=== PATIENT | female | born 1945 | race Caucasian/White ===

== ENCOUNTER → 2016-11-22 | Outpatient (CLI) | payer OTHER ==
[~2016-11-22] MED LIST: ACET-1138 PO; ACET-1256 PO; ASPEC325 PO; ASPI81TA28 PO; CALC-26 PO; CARV3.12 PO; CLOP1TAB15 PO; COEN1CAP7 PO; GLUCTAB7 PO; MULT-506 PO; NTRGSL/4 UT; OXYC-57 PO; PRED-301 PO; RXC5 PO; ZNTT/150 PO
--- NOTE | 2016-11-22 16:19 | MAMMOGRAPHY REPORT ---
BILATERAL DIGITAL SCREENING MAMMOGRAM WITH CAD: 11/22/2016 CLINICAL HISTORY: Routine screening. Patient has no complaints. TECHNIQUE: Bilateral CC and MLO views were obtained. Current study was also evaluated with a Comput er Aided Detection (CAD) system. COMPARISON: Comparison is made to exams dated: 10/07/2015 mammogram, 10/06/2014 mammogram, 09/20/2012 mammogram, 10/04/2013 mammogram, 09/12/2011 mammogram, and 09/29/2010 mammogram - [facility]. BREAST COMPOSITION: The tissue of both breasts is heterogeneously dense, which may obscure small ma sses. FINDINGS: There are scattered and grouped benign-appearing round and punctate microcalcifications i n the breasts. No new suspicious mass, architectural distortion or cluster of microcalcifications is seen. IMPRESSION: ACR BI-RADS CATEGORY 2: BENIGN There is no mammographic evidence of malignancy. A 1 year screening mammogram is recommended. The p atient will receive written notification of the results. Approximately 10% of breast cancers are not detected with mammography. A negative mammographic repor t should not delay biopsy if a clinically suggestive mass is present. Bea Ruiz M.D. ay/:11/22/2016 16:11:09 Recruitment Specialist: Renetta GALARZA(R)(M), [facility] letter sent: Normal 1/2 BI-RADS Code: ACR BI-RADS Category 2: Benign
== END | disposition home or self-care (01) ==
LOC: C.MAMM 09:27
PROVIDERS: ATTEND Family Medicine
DX: Z12.31 Encounter for screening mammogram for malignant neoplasm of breast (principal)

== ENCOUNTER → 2017-08-09 | Outpatient (CLI) | payer OTHER ==
[~2017-08-09] MED LIST changes: -ACET-1138 PO; -ACET-1256 PO; -ASPEC325 PO; -RXC5 PO
[2017-08-09 13:33] LABS: BLOOD UREA NITROGEN 21 mg/dl (7-18); CALCIUM 9.5 mg/dl (8.5-10.1); CARBON DIOXIDE 30 mmol/L (21-32); CREATININE 0.83 mg/dl (0.60-1.20); GLUCOSE 96 mg/dl (70-99); POTASSIUM 4.1 mmol/L (3.5-5.1); SODIUM 139 mmol/L (136-145)
[2017-08-09 13:36] LABS: CHOLESTEROL 178 mg/dl (0-200); LDL CHOLESTEROL CALCULATED 82 mg/dl
== END | disposition home or self-care (01) ==
LOC: C.LABPVFM 09:05
PROVIDERS: ATTEND Family Medicine
DX: E55.9 Vitamin D deficiency, unspecified (principal); E78.5 Hyperlipidemia, unspecified; I10 Essential (primary) hypertension

== ENCOUNTER → 2017-11-08 | Day surgery (SDC) | payer OTHER ==
[2017-11-03 09:36] VITALS: Ht 167.6 cm; Wt 75.0 kg
[~2017-11-08] VITALS: Ht 167.6 cm; Wt 75.0 kg
[~2017-11-08] MED LIST changes: +CHOL1000 PO; -CLOP1TAB15 PO; +COEN1CAP17 PO; -COEN1CAP7 PO; +EZET10TA63 PO; +HYDR2.5O TOP; +LIDOCAINE HCL 2% 2 ML VIAL (20MG/ML) ONE; +MIDAZOLAM HCL 1 MG/ML 2ML VIAL ONE; -NTRGSL/4 UT; +ONDANSETRON INJ 2 MG/ML 2 ML VIAL ONE; -OXYC-57 PO; +POLY335019 PO; +PROPOFOL IV EMULSION 10 MG/ML 20 ML VIAL ONE; +RANI150T85 PO; +SODIUM CHLORIDE 0.9% 500ML 500 ML IV ONE; -ZNTT/150 PO
--- NOTE | 2017-11-08 11:16 | Endo History and Physical ---
History & Physical Date of Service: November 08, 2017. Chief Complaint: GERD Referring Physician: Dr. Olson History of Present Illness 72 yo CF who presents for EGD secondary to GERD. Past Surgical History Hx Cardiac Surgery: Yes (CARDIAC CATH 1 STENT-, 07/2016 1 STENT) Hx Internal Defibrillator: No Hx Pacemaker: No Hx Abdominal Surgery: Yes (HYSTERECTOMY BSO) Hx of Implantable Prosthesis: No Hx Post-Op Nausea and Vomiting: Yes (PONV X 1) Hx Cancer Surgery: No Hx Thoracic Surgery: No Hx Orthopedic: Yes (R TKR, L K MENSICUS ARTHROSCOPY) Hx Urinary Tract Surgery: No Social History Smoking Status: Never Smoker Hx Substance Use: No Hx Alcohol Use: Yes (OCC SOCIAL) Allergies Coded Allergies: Ketorolac Tromethamine (Verified Allergy, Severe, itching from head to toe , nausea, throat tightening, 11/03/17) Patient uncertain of wheter Nucynta or Toradol could have caused this. Tapentadol (Verified Allergy, Severe, itching head to toe, dry mouth, tightening of throat, airway, 11/03/17) Cefaclor (Verified Allergy, Unknown, full body swelling-SOB, 11/03/17) Codeine (Verified Allergy, Unknown, OUT OF BODY,DIZZY COULDN'T FUNCTION, ) Ibuprofen (Verified Allergy, Unknown, FULL BODY SWELLING SOB, 11/03/17) pt states had reaction when taking ibuprofen and ceclor together. unsure which one caused reaction. pt avoids all NSAIDs Nitrofurantoin (Verified Allergy, Unknown, SOB,WELTS ON SKIN, 11/03/17) Oxycodone (Verified Allergy, Unknown, rash, 11/03/17) Ranolazine (Verified Allergy, Unknown, palpitations, anxiety, 11/03/17) Statins (Verified Allergy, Unknown, DOESN'T METABOLIZE-ACHES, 11/03/17) Amoxicillin (Unverified Adverse Reaction, Unknown, VIOLENT VOMITING, ) Clavulanic Acid (Unverified Adverse Reaction, Unknown, VIOLENT VOMITING, ) Current Medications Reported Home Medications Medications Dose Route/Sig Max Daily Dose Days Date Category Dose Instructions Zetia (Ezetimibe) 10 Mg Tab 10 Mg PO DAILY 11/03/17 Reported Vitamin D3 (Cholecalciferol) 1,000 Unit Tab 1 Tab PO TW 30 11/03/17 Reported Miralax (Polyethylene Glycol 3350) 1 Pow Pow 17 Gm PO DAILY 11/03/17 Reported Hydrocortisone (Hydrocortisone (Topical)) 2.5 % Oin 1 Appln TOP TID 5 11/03/17 Reported Co Q 10 (Coenzyme Q10 (Ubidecarenone)) 100 Mg Cap 1 Tab PO DAILY 11/03/17 Reported Aspirin Ec (Aspirin) 81 Mg Tab 81 Mg PO QAM 05/05/17 Reported Multivitamin (Multivitamins) Tab 1 Tab PO QAM 03/15/16 Reported Glucosamine Chondroitin (Wqrufhjdzyz-Enpeakqqyho-Sxf C-) 1 Tab Tab 1 Tab PO QAM 03/15/16 Reported Calcium Citrate +D (Calcium Citrate-Vitamin D) 1 Tab Tab 1 Tab PO QAM 03/15/16 Reported CALCIUM/D3/K Prednisone 5 Mg Tab 5 Mg PO Q2D 03/15/16 Reported Coreg (Carvedilol) 3.125 Mg Tab 3.125 Mg PO BID 03/15/16 Reported Zantac (Ranitidine HCl) 150 Mg Tab 150 Mg PO BID 03/15/16 Reported Vital Signs Weight (Kilograms): 75 Height (Feet): 5 Height (Inches): 6 Physical Exam General Appearance: WD/WN, no apparent distress Respiratory/Chest: Auscultation: breath sounds normal Cardiovascular: Heart Auscultation: RRR Abdomen: Bowel Sounds: normal Inspection & Palpation: soft, non-distended, no tenderness, guarding & rebound Assessment and Plan Assessment: 72 yo CF who presents for EGD secondary to GERD. Plan: Proceed with EGD.
--- NOTE | 2017-11-08 12:13 | GI REPORT ---
Patient Name: Noa Olivarez Procedure Date: 11/08/2017 11:54 AM Date of : 1945 Admit Type: Outpatient Age: 72 Gender: Female Attending MD: Imer Jett DO Procedure: Upper GI endoscopy Providers: Imer Jett DO Referring MD: Jasmine Olson Indications: Gastro-esophageal reflux disease Medicines: Monitored Anesthesia Care Complications: No immediate complications. Estimated Blood Loss: Estimated blood loss: none. Procedure: Pre-Anesthesia Assessment: - Prior to the procedure, a History and Physical was performed, and patient medications and allergies were reviewed. The patient's tolerance of previous anesthesia was also reviewed. The risks and benefits of the procedure and the sedation options and risks were discussed with the patient. All questions were answered, and informed consent was obtained. Prior Anticoagulants: The patient has taken aspirin, last dose was 1 day prior to procedure. ASA Grade Assessment: II - A patient with mild systemic disease. After reviewing the risks and benefits, the patient was deemed in satisfactory condition to undergo the procedure. After obtaining informed consent, the endoscope was passed under direct vision. Throughout the procedure, the patient's blood pressure, pulse, and oxygen saturations were monitored continuously. The scope was introduced through the mouth, and advanced to the second part of duodenum. The upper GI endoscopy was accomplished without difficulty. The patient tolerated the procedure well. Findings: A moderate Schatzki ring (acquired) was found at the gastroesophageal junction. A TTS dilator was passed through the scope. Dilation with an 18-19-20 mm balloon dilator was performed to 20 mm. The dilation site was examined and showed moderate improvement in luminal narrowing. A small hiatal hernia was present. Localized moderate inflammation characterized by erythema was found in the gastric antrum. Biopsies were taken with a cold forceps for histology. The examined duodenum was normal. Impression: - Moderate Schatzki ring. Dilated. - Small hiatal hernia. - Gastritis. Biopsied. - Normal examined duodenum. Recommendation: - Resume previous diet. - Continue present medications. - Await pathology results. - Use Protonix (pantoprazole) 40 mg PO daily. Imer Jett DO 11/08/2017 12:12:44 PM This report has been signed electronically. Note Initiated On: 11/08/2017 11:54 AM Number of Addenda: 0 I attest to the content of the Intraoperative Record and orders documented therein, exceptions below {[id number]}
--- NOTE | 2017-11-08 12:15 | Discharge Instructions ---
Endoscopy Patient Instructions Date / Procedure(s) Performed November 08, 2017. EGD Allergy Information Coded Allergies: Ketorolac Tromethamine (Verified Allergy, Severe, itching from head to toe , nausea, throat tightening, 11/03/17) Patient uncertain of wheter Nucynta or Toradol could have caused this. Tapentadol (Verified Allergy, Severe, itching head to toe, dry mouth, tightening of throat, airway, 11/03/17) Cefaclor (Verified Allergy, Unknown, full body swelling-SOB, 11/03/17) Codeine (Verified Allergy, Unknown, OUT OF BODY,DIZZY COULDN'T FUNCTION, ) Ibuprofen (Verified Allergy, Unknown, FULL BODY SWELLING SOB, 11/03/17) pt states had reaction when taking ibuprofen and ceclor together. unsure which one caused reaction. pt avoids all NSAIDs Nitrofurantoin (Verified Allergy, Unknown, SOB,WELTS ON SKIN, 11/03/17) Oxycodone (Verified Allergy, Unknown, rash, 11/03/17) Ranolazine (Verified Allergy, Unknown, palpitations, anxiety, 11/03/17) Statins (Verified Allergy, Unknown, DOESN'T METABOLIZE-ACHES, 11/03/17) Amoxicillin (Unverified Adverse Reaction, Unknown, VIOLENT VOMITING, ) Clavulanic Acid (Unverified Adverse Reaction, Unknown, VIOLENT VOMITING, ) Discharge Date / Findings November 08, 2017. Schatzki's Ring s/p dilation Hiatal hernia Gastritis s/p biopsies Medication Instructions OK to resume all medications today as prescribed Reported Home Medications Medications Dose Route/Sig Max Daily Dose Days Date Category Dose Instructions Zetia (Ezetimibe) 10 Mg Tab 10 Mg PO DAILY 11/03/17 Reported Vitamin D3 (Cholecalciferol) 1,000 Unit Tab 1 Tab PO TW 30 11/03/17 Reported Miralax (Polyethylene Glycol 3350) 1 Pow Pow 17 Gm PO DAILY 11/03/17 Reported Hydrocortisone (Hydrocortisone (Topical)) 2.5 % Oin 1 Appln TOP TID 5 11/03/17 Reported Co Q 10 (Coenzyme Q10 (Ubidecarenone)) 100 Mg Cap 1 Tab PO DAILY 11/03/17 Reported Aspirin Ec (Aspirin) 81 Mg Tab 81 Mg PO QAM 05/05/17 Reported Multivitamin (Multivitamins) Tab 1 Tab PO QAM 03/15/16 Reported Glucosamine Chondroitin (Rqdqusosvbh-Gybgsoriabr-Bqq C-) 1 Tab Tab 1 Tab PO QAM 03/15/16 Reported Calcium Citrate +D (Calcium Citrate-Vitamin D) 1 Tab Tab 1 Tab PO QAM 03/15/16 Reported CALCIUM/D3/K Prednisone 5 Mg Tab 5 Mg PO Q2D 03/15/16 Reported Coreg (Carvedilol) 3.125 Mg Tab 3.125 Mg PO BID 03/15/16 Reported Zantac (Ranitidine HCl) 150 Mg Tab 150 Mg PO BID 03/15/16 Reported Provider Instructions Activity Restrictions - No exercising or heavy lifting for 24 hours. - Do not drink alcohol the day of the procedure. - Do not drive a car or operate machinery until the day after the procedure. - Do not make any important decisions or sign important papers in 24 hours after the procedure. Following Day: - Return to full activity which may include returning to work/school. Diet Start your diet with liquids and light foods (jello, soup, juice, toast). Then eat your usual diet if not nauseated. Treatment For Common After Affects For mild abdominal pain, bloating, or excessive gas: - Rest - Eat lightly - Lie on right side Follow-Up Information Follow-up with Dr Olson as scheduled Anesthesia Information What You Should Know You have had a procedure that required some medicine to reduce anxiety and discomfort. This treatment is called moderate sedation. After receiving the treatment, you may be sleepy, but you will be able to breathe on your own. The effects of the treatment may last for several hours. Follow these instructions along with Activity/Diet recommendations noted above: * Do NOT do anything where dizziness or clumsiness would be dangerous. * Rest quietly at home today, then you can be up and about tomorrow. * Have a responsible person stay with you the rest of today. * You may have had an I.V. today. If so, you may take the dressing off later today. Recommendations Call your doctor if: * Trouble breathing * Continuous vomiting for more than 24 hours * Temperature above 101 degrees * Severe abdominal pain or bloating * Pain not relieved by pain medicine ordered * There is increased drainage or redness from any incision * A large amount of rectal bleeding greater than 2-3 tablespoons. (If you had a polyp/s removed or have hemorrhoids, a small amount of blood - from the rectum is to be expected.) * You have any unanswered questions or concerns. IN THE EVENT OF A SERIOUS EMERGENCY, GO TO THE NEAREST EMERGENCY ROOM Your discharge instructions were prepared by provider Imer Jett. Patient Instructions Signature Page Noa Olivarez Patient (or Guardian) Signature/Date: I have read and understand the instructions given to me by my caregivers. Caregiver/RN/Doctor Signature/Date: The above-named patient and/or guardian has received patient instructions on this date. + Original Patient Signature Page (only) stays with chart. Please make copy for patient.
--- NOTE | 2017-11-08 12:26 | Anesthesiology Progress Note ---
Anesthesia Post Op Note Date & Time November 08, 2017 at 12:26 Vital Signs Vital Signs Past 12 Hours Date Time Temp Pulse Resp B/P (MAP) Pulse Ox O2 Delivery O2 Flow Rate FiO2 11/08/17 12:12 68 16 133/58 (83) 98 Room Air 11/08/17 11:32 36.9 70 18 165/81 (109) 99 Room Air Notes Mental Status: alert / awake / arousable, participated in evaluation Pt Amnestic to Procedure: Yes Nausea / Vomiting: adequately controlled Pain: adequately controlled Airway Patency, RR, SpO2: stable & adequate BP & HR: stable & adequate Hydration State: stable & adequate Anesthetic Complications: no major complications apparent
[2017-11-08 12:42] VITALS: BP 160/75; PULSE 60; O2SAT 100
== END | disposition home or self-care (01) ==
LOC: C.GI 10:54
PROVIDERS: ATTEND Internal Medicine
DX: K21.9 Gastro-esophageal reflux disease without esophagitis (principal); K22.2 Esophageal obstruction; K44.9 Diaphragmatic hernia without obstruction or gangrene; K31.9 Disease of stomach and duodenum, unspecified; I25.10 Atherosclerotic heart disease of native coronary artery without angina pectoris; Z86.73 Personal history of transient ischemic attack (TIA), and cerebral infarction without residual deficits; M19.90 Unspecified osteoarthritis, unspecified site; Z90.710 Acquired absence of both cervix and uterus; Z90.89 Acquired absence of other organs; Z96.651 Presence of right artificial knee joint; Z88.1 Allergy status to other antibiotic agents; Z88.8 Allergy status to other drugs, medicaments and biological substances; Z88.5 Allergy status to narcotic agent; Z79.82 Long term (current) use of aspirin; Z79.899 Other long term (current) drug therapy

== ENCOUNTER → 2017-11-28 | Outpatient (CLI) | payer OTHER ==
[~2017-11-28] MED LIST changes: -LIDOCAINE HCL 2% 2 ML VIAL (20MG/ML) ONE; -MIDAZOLAM HCL 1 MG/ML 2ML VIAL ONE; -ONDANSETRON INJ 2 MG/ML 2 ML VIAL ONE; -PROPOFOL IV EMULSION 10 MG/ML 20 ML VIAL ONE; -SODIUM CHLORIDE 0.9% 500ML 500 ML IV ONE
--- NOTE | 2017-11-29 14:22 | MAMMOGRAPHY REPORT ---
BILATERAL DIGITAL SCREENING MAMMOGRAM TOMOSYNTHESIS WITH CAD: 11/28/2017 CLINICAL HISTORY: Routine screening examination. TECHNIQUE: Breast tomosynthesis in addition to standard 2D mammography was performed. Current study was also evaluated with a Computer Aided Detection (CAD) system. COMPARISON: Comparison is made to exams dated: 11/22/2016 mammogram, 10/07/2015 mammogram, 10/06/2014 m ammogram, 10/04/2013 mammogram, 09/20/2012 mammogram, and 09/12/2011 mammogram - [facility]. BREAST COMPOSITION: The tissue of both breasts is heterogeneously dense, which may obscure small mas ses. FINDINGS: There are diffusely scattered and grouped benign-appearing microcalcifications which are s table comparing to prior mammograms. No suspicious mass, architectural distortion or new cluster of m icrocalcifications is seen. IMPRESSION: ACR BI-RADS CATEGORY 2: BENIGN There is no mammographic evidence of malignancy. A 1 year screening mammogram is recommended. The pa tient will receive written notification of the results. Approximately 10% of breast cancers are not detected with mammography. A negative mammographic report should not delay biopsy if a clinically suggestive mass is present. Bea Ruiz M.D. ay/:11/28/2017 16:03:18 Net Solutions Architect: Peggy GALARZA(Sonia)(Eugenie), [facility] letter sent: Normal 1/2 BI-RADS Code: ACR BI-RADS Category 2: Benign
== END | disposition home or self-care (01) ==
LOC: C.MAMM 09:19
PROVIDERS: ATTEND Family Medicine
DX: Z12.31 Encounter for screening mammogram for malignant neoplasm of breast (principal)

== ENCOUNTER 2019-04-04 09:33 | Inpatient (IN) ==
--- NOTE | 2019-03-07 13:34 | PAT Medication Instructions ---
Medication Instructions Date of Service March 07, 2019 Home Medications acetaminophen 500 mg tablet 500 mg PO PRN aspirin 81 mg tablet,delayed release 81 mg PO QAM calcium carbonate 600 mg calcium (1,500 mg) tablet 600 mg PO QAM carvedilol 3.125 mg tablet 3.125 mg PO BID coenzyme Q10 100 mg capsule 100 mg PO QAM ezetimibe 10 mg tablet 10 mg PO QAM hydrocortisone 2.5 % topical ointment 1 appln TOPICAL DAILY PRN pantoprazole 40 mg tablet,delayed release 40 mg PO QAM polyethylene glycol 3350 17 gram/dose oral powder 17 gm PO PRN triamcinolone acetonide 0.5 % topical cream 1 appln TOPICAL BID PRN clobetasol 1 appln TOP BID PRN STOP taking 2 weeks before surgery (or as soon as possible if surgery is within 2 weeks) coenzyme Q10 100 mg capsule 100 mg PO QAM STOP taking 24 hours before surgery hydrocortisone 2.5 % topical ointment 1 appln TOPICAL DAILY PRN triamcinolone acetonide 0.5 % topical cream 1 appln TOPICAL BID PRN clobetasol 1 appln TOP BID PRN DO NOT take the morning of surgery calcium carbonate 600 mg calcium (1,500 mg) tablet 600 mg PO QAM polyethylene glycol 3350 17 gram/dose oral powder 17 gm PO PRN Take morning of surgery With a small sip of water, OTHERWISE NOTHING TO EAT OR DRINK AFTER MIDNIGHT: acetaminophen 500 mg tablet 500 mg PO PRN (okay to take up to 4 hours prior to surgery if needed) aspirin 81 mg tablet,delayed release 81 mg PO QAM carvedilol 3.125 mg tablet 3.125 mg PO BID ezetimibe 10 mg tablet 10 mg PO QAM pantoprazole 40 mg tablet,delayed release 40 mg PO QAM Take evening before surgery acetaminophen 500 mg tablet 500 mg PO PRN (if needed) carvedilol 3.125 mg tablet 3.125 mg PO BID polyethylene glycol 3350 17 gram/dose oral powder 17 gm PO PRN (if needed) Other Notes If you have any questions please call us at [phone] or [phone] or [phone] or [phone]
--- NOTE | 2019-03-08 09:56 | Anesthesiology Consultation ---
Date of Service March 08, 2019 Assessment & Plan (1) Encounter for pre-operative examination: Cardio: 01/11/19: chronic, unchanged DUBOSE. F/U 1 year. Chart Review Chart Review: Acceptable Risk for Surgery (pending preop testing (labs, CXR)) and Patient seen in Pre Admission Testing Teaching & Discussion Pre-Anesthesia Teaching/Discussion Notes: Instructed NPO after midnight before surgery,except medications with 15 cc of water. Medication instructions provided according to the PAT guidelines. History Surgery Operation Date: 04/04/19 11:10 Proposed Procedures p Left Total Knee Replacement - Bijan Lamar MD Height/Weight Height: 5 ft 6 in Weight: 73.5 kg Allergies Allergy/AdvReac Type Severity Reaction Status Date / Time ketorolac Allergy Severe itching Verified 03/08/19 10:19 from head to toe, nausea, throat tightening tapentadol Allergy Severe itching Verified 03/01/19 12:00 head to toe, dry mouth, tightening of throat, airway tramadol Allergy Severe itching Verified 03/08/19 10:19 from head to toe, nausea, throat tightening cefaclor Allergy Unknown full body Verified 03/01/19 12:00 swelling-SOB codeine Allergy Unknown OUT OF Verified 03/01/19 12:00 BODY,DIZZY COULDN'T FUNCTION ibuprofen Allergy Unknown FULL BODY Verified 03/01/19 12:00 SWELLING SOB nitrofurantoin Allergy Unknown SOB,WELTS Verified 03/01/19 12:00 ON SKIN oxycodone Allergy Unknown rash Verified 03/01/19 12:00 ranolazine Allergy Unknown palpitations, Verified 03/01/19 12:00 anxiety Bguftfd-Uhm-Pnp Reductase Allergy Unknown DOESN'T Verified 03/01/19 12:00 Inhibitor METABOLIZE-ACHES amoxicillin AdvReac Unknown VIOLENT Verified 03/01/19 12:00 VOMITING clavulanic acid AdvReac Unknown VIOLENT Verified 03/01/19 12:00 VOMITING Medications Home Medications Medication Instructions Recorded Confirmed Last Taken acetaminophen 500 mg tablet 500 mg PO PRN tab 01/27/19 03/01/19 Unknown aspirin 81 mg tablet,delayed 81 mg PO QAM tab 01/27/19 03/01/19 Unknown release calcium carbonate 600 mg calcium 600 mg PO QAM tab 01/27/19 03/01/19 Unknown (1,500 mg) tablet carvedilol 3.125 mg tablet 3.125 mg PO BID tab 01/27/19 03/01/19 Unknown coenzyme Q10 100 mg capsule 100 mg PO QAM cap 01/27/19 03/01/19 Unknown ezetimibe 10 mg tablet 10 mg PO QAM #90 tab 01/27/19 03/01/19 Unknown hydrocortisone 2.5 % topical 1 appln TOPICAL DAILY PRN gm 01/27/19 03/01/19 Unknown ointment pantoprazole 40 mg tablet,delayed 40 mg PO QAM #90 tab 01/27/19 03/01/19 Unknown release polyethylene glycol 3350 17 17 gm PO PRN PRN gm 01/27/19 03/01/19 Unknown gram/dose oral powder triamcinolone acetonide 0.5 % 1 appln TOPICAL BID PRN #1 gm 01/27/19 03/01/19 Unknown topical cream clobetasol 1 appln TOP BID PRN 03/01/19 03/01/19 Unknown prednisone 5 mg PO Q OTHER DAY 03/08/19 03/08/19 Unknown Past Medical History Medical History CAD (coronary artery disease) 2009 (stent x 1), 2016 (stent x1) Chronic back pain Degenerative disc disease GERD (gastroesophageal reflux disease) controlled Hiatal hernia History of benign breast biopsy left History of mitral valve prolapse Osteoarthritis PMR (polymyalgia rheumatica) on chronic prednisone* Schatzki's ring Exercise / Class Metabolic Activity III < 4 Walking/Shop/Light housework Past Family History Family History Father Family history of diabetes mellitus Uncle Family history of diabetes mellitus Past Surgical History Surgical History History of D&C History of arthroscopy of left knee History of cardiac cath 2009 (stent x 1), 2017 (stent x1) History of cataract surgery B/L History of colonoscopy History of esophagogastroduodenoscopy (EGD) History of right knee joint replacement History of tonsillectomy and adenoidectomy History of total abdominal hysterectomy and bilateral salpingo-oophorectomy Past Anesthesia History No Family Hx of Anesthesia Complications and Other *"Slow to wake"; no known hx reintubation* History of PONV No Hx of PONV and No Hx of Motion Sickness Social History Smoking Status: Never smoker Do You Dip or Chew Tobacco: No Hx Alcohol Use: Yes Alcohol type: wine alcohol intake frequency: holidays/special occasions only Hx Substance Use: No substance use type: does not use Review of Systems Reflux controlled. Patient denies chest pain, shortness of breath, cough, wheezing, palpitations. Physical Exam Vital Signs VITALS BP 132*79 P 63 TEMP 98.0 SP02 97%RA RESP 20 PHYSICAL Full neck and c-spine range of motion. Full TMJ range of motion. TMD 2 finger breaths (small chin) Mallampati Score 3 Dentition: partial dentures on lower, several crowns including upper left side Lungs: clear throughout to auscultation Cardiac: regular rate and rhythm, I/ systolic murmur Spine: normal Carotid arteries: negative bruit Extremities: no edema Testing Electrocardiogram Date: 04/27/18 Findings: + NSR @ (71) Echocardiogram Date: 12/17/15 EF 55-60%. Mild to moderate MR. Stress Test Date: 08/21/14 Type: nuclear (Lexiscan) Minimal motion artifact noted. Some breast attenuation present on the study. Stress EKG with no significant ST changes. Occasional PVC's. Myocardial perfusion scan is "normal" with no area of ischemia or infarction. EF 73%. Cardiac Catheterization Date: 07/14/16 Successful FFR, PTCA and POPEYE of the diagonal branch with PTCA of the LAD. LVEF 60%.
[2019-03-08 10:33] LABS: Basophils # (auto) 0.03 K/uL (0-0.2); Basophils % (auto) 0.6 %; Eosinophils # (auto) 0.21 K/uL (0-0.5); Eosinophils % (auto) 4.1 %; Hematocrit (blood only) 40.9 % (37-47); Hemoglobin 13.5 g/dL (12.0-16.0); Immature Granulocytes # (auto) 0.01 K/uL (0.00-0.02); Immature Granulocytes % (auto) 0.2 %; Lymphocytes # (auto) 1.93 K/uL (1.2-3.4); Lymphocytes % (auto) 37.4 %; Mean Corpuscular Hemoglobin 29.6 pg (25-34); Mean Corpuscular Volume 89.7 fL (80-100); Mean Platelet Volume 9.7 fL (7.4-10.4); Monocytes # (auto) 0.33 K/uL (0.11-0.59); Monocytes % (auto) 6.4 %; Neutrophils # (auto) 2.65 K/uL (1.4-6.5); Neutrophils % (auto) 51.3 %; Platelet Count 195 K/uL (130-400); RDW Coefficient of Variation 14.9 % (11.5-14.5); RDW Standard Deviation 48.6 fL (36.4-46.3); Red Blood Count 4.56 M/uL (4.2-5.4); White Blood Count 5.16 K/uL (4.8-10.8)
[2019-03-08 10:40] LABS: INR 1.1 (0.9-1.1); Partial Thromboplastin Ratio 1.1; Partial Thromboplastin Time 28.9 Seconds (21.0-31.0); Prothrombin Time 10.9 Seconds (9.0-12.0)
--- NOTE | 2019-03-08 10:49 | XRay Report ---
XR chest Pre-admission PA/Lat CLINICAL HISTORY: pat preoperative COMPARISON STUDY: No previous studies for comparison. FINDINGS: The bones soft tissues and hemidiaphragms are normal. The cardiomediastinal silhouette is n ormal. The lungs are clear. The pulmonary vasculature is normal. IMPRESSION: Negative chest. The above report was generated using voice recognition software. It may contain grammatical, syntax or spelling errors. Electronically signed by: Ad Hawley M.D. 03/08/2019 10:48 AM
[2019-03-08 12:00] LABS: BUN Creatinine Ratio 32.9 (10-20); Blood Urea Nitrogen 26 mg/dl (7-18); C Reactive Protein < 0.29 mg/dl (0-0.29); Calcium 9.2 mg/dl (8.5-10.1); Carbon Dioxide 30 mmol/L (21-32); Chloride 109 mmol/L (98-107); Creatinine Clr Calc Pharmacy 66.9 ml/min; Glucose 95 mg/dl (70-99); Potassium 4.4 mmol/L (3.5-5.1); Sodium 141 mmol/L (136-145)
--- NOTE | 2019-03-30 18:44 | History and Physical Report ---
DATE OF ADMISSION: 04/04/2019 CHIEF COMPLAINT: Persistent left knee pain and discomfort. HISTORY OF PRESENT ILLNESS: A 73-year-old female who is well known to me from multiple previous orthopedic problems in the past. She underwent a right knee replacement about 5 years ago and has done well from this. Over the past several years, she has developed increased pain and discomfort in her left knee. She had fairly minor degenerative changes and we scoped her knee about 2 years ago. It helped her for couple months and that is it. Things have progressed since then. She has got global pain. It has gotten gradually worse, particularly with weightbearing. The more she walks, the more it hurts. She has had multiple injections which provided some temporary relief only. X-ray show progressive left medial knee arthritis and she would like to proceed with left knee replacement. PAST MEDICAL HISTORY: Significant for: 1. Coronary artery disease status post cardiac stent placement x2, one in 2009 and one in 2016, followed in [place]. 2. Hiatal hernia. 3. Gastroesophageal reflux disease. 4. Mild obesity. 5. Hypertension. 6. Elevated cholesterol. 7. History of TIA without sequelae. 8. PMR. PAST SURGICAL HISTORY: Previous surgeries include: 1. Breast biopsy x2. 2. Cardiac stent placement, one in 2009 and one in 2017. 3. Hysterectomy. 4. Right knee replacement done in 10/30/2013. 5. Left knee arthroscopy on 05/10/2017. ALLERGIES: CECLOR, IBUPROFEN, MACROBID, AUGMENTIN, CODEINE AND TRAMADOL/TORADOL. MEDICATIONS: 1. Coenzyme Q. 2. Calcium. 3. Prednisone 3.5 mg every other day for PMR. 4. Pantoprazole 40 mg. 5. Carvedilol. 6. Ezetimibe. 7. Aspirin 81 mg a day. SOCIAL HISTORY: Significant for a 73-year-old female patient who is , lives in [place]. Does not smoke. FAMILY HISTORY: Noncontributory. REVIEW OF SYSTEMS: Significant for this TIA without sequelae. She has had 2 cardiac stents placed. She denies any current chest pain or shortness of breath. No history of DVT or PE. PHYSICAL EXAMINATION: GENERAL: Reveals a healthy, pleasant middle-aged female. Looks to be in pretty good health. HEENT: Benign. NECK: Supple, no lymphadenopathy. LUNGS: Clear to auscultation. HEART: Has a regular rate and rhythm. ABDOMEN: Soft, nontender, nondistended. EXTREMITIES: Grossly neurovascularly intact except as follows. Examination of the left knee reveals the patient ambulates with a limp. She has got varus alignment to her knee. Small knee effusion. She is tender over the medial joint line. Range of motion is 10 degrees short of full extension and 20 degrees of flexion. There is no instability. Examination of the left hip reveals some slight pain and stiffness with hip motion. Leg lengths are equal. Negative straight leg raise. X-RAYS: X-rays of the left knee reveal advanced medial compartment DJD. She has got complete loss of medial joint space. 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 She has subchondral sclerosis. X-rays of the left hip reveals some mild hip arthritis. There are osteophytes around the acetabulum and femoral head, but it is preserved hip joint space. ASSESSMENT: A 73-year-old female with a history of right knee replacement in the past with left knee degenerative joint disease. She has got some hip arthritis. The left knee seems to be more of the limiting factor. She has failed conservative treatment and would like to proceed with left knee replacement. PLAN: We will take her to the Operating Room and do the left knee replacement. The risks and benefits of this procedure were explained to the patient including but not limited to DVT, PE, , infection, neurological injury, vascular injury, bleeding problem, pain, limited range of motion, stiffness, failure to relieve symptoms, incomplete relief of symptoms, need for further surgery in future, fracture, leg length inequality, nerve palsy, etc. The patient understands and desires to proceed. Informed consent was obtained. I did talk to her about this not helping her hip pain, may need to be addressed in the future. As far as pain control, she has apparently had reactions to both tramadol and Toradol in the past. We will have to check her chart and be careful with postoperative pain control. We will likely use oxycodone as she has had done okay with that in the past. We will use Tylenol as well. As far as discharge plans, she is planning to be discharged to home using [facility]. JOHN
[~2019-04-04 09:33] MED LIST changes: +ACETAMINOPHEN 500 MG TAB PO SCH; -ASPI81TA28 PO; +BUPIVACAINE 0.5 % 5 MG/1 ML PF 10ML VIAL ONE; +BUPIVACAINE LIPOSOME/PF 266 MG, BUPIVACAINE/EPINEPHRINE 50 ML, SODIUM CHLORIDE 0.9% 30 ... INFIL SCH; -CALC-26 PO; -CARV3.12 PO; -CHOL1000 PO; -COEN1CAP17 PO; -EZET10TA63 PO; +FAMOTIDINE 20 MG TAB PO SCH; +GABAPENTIN 300 MG CAP PO SCH; -GLUCTAB7 PO; -HYDR2.5O TOP; +LR 500ML BOLUS, THEN 15ML/HR IV SCH; +LR 60ML/HR IV SCH; +METOCLOPRAMIDE HCL 10 MG TABLET PO SCH; -MULT-506 PO; -POLY335019 PO; -PRED-301 PO; -RANI150T85 PO; +ROPIVACAINE 0.5% 5 MG/ML 30 ML VIAL ONE; +TRANEXAMIC ACID 1,000 MG **IV Pre-op IV SCH; +VANCOMYCIN HCL 1,250 MG in SODIUM CHLORIDE 0.9% 250 ML IV SCH
[2019-04-04] MEDS ORDERED: PROPOFOL IV EMULSION 10 MG/ML 20 ML VIAL IV ONE (10:49)
[2019-04-04] MEDS ORDERED: LIDOCAINE HCL 2% 2 ML VIAL/AMP(20MG/ML) INFIL ONE (10:49)
[2019-04-04] MEDS ORDERED: MIDAZOLAM HCL 1 MG/ML 2ML VIAL ONE (10:50)
[2019-04-04] MEDS ORDERED: fentaNYL citrate 100 MCG/2 ML VIAL ONE (10:50)
--- NOTE | 2019-04-04 11:07 | History & Physical Bridge Note ---
Date of Service April 04, 2019 History & Physical Bridge Note I have examined the patient, reviewed the History & Physical and in the interval since the performance of the History & Physical I have noted the following changes of clinical significance: no changes noted
[2019-04-04] MEDS ORDERED: BUPIVACAINE/EPINEPHRINE 0.25% 1:200,000 30 ML VIAL ONE (12:15)
[2019-04-04] MEDS ORDERED: BUPIVACAINE LIPOSOME 1.3% 266 MG/20 ML VIAL ONE (12:15)
[2019-04-04] MEDS ORDERED: SODIUM CHLORIDE 0.9% PF 50 ML VIAL ONE (12:15)
[2019-04-04] MEDS ORDERED: BACITRACIN INJ 50,000 UNIT VIAL ONE (12:15)
--- NOTE | 2019-04-04 14:53 | Post Operative Brief Note ---
PG Immediate Post Op with CF Date of Surgery April 04, 2019 Pre & Post Diagnosis Operation Date: 04/04/19 12:45 Pre-Op Diagnosis: Left Knee Degenerative Joint Disease Post-Op Diagnosis: Left Knee Degenerative Joint Disease Procedure Operation Date: 04/04/19 12:45 Actual Procedures p Left Total Knee Replacement(Left) - Bijan Lamar MD Surgeon Bijan Lamar MD Insurance Processor Rosana, PAC Estimated Blood Loss 50 Findings Consistent with Post-Op Diagnosis Fluids 1400 cc Specimens Specimen Description: Permanent specimen A: left knee bone and tissue Drains Leos Catheter (16fr leos catheter placed by Bob Morgan RN, without difficulty; leos demonstrates clear yellow urine.) Anesthesia Type Spinal MAC Complications none Disposition Accompanied Patient To Recovery: No Disposition: Recovery Room
--- NOTE | 2019-04-04 15:34 | XRay Report ---
XR knee LT 2V routine CLINICAL HISTORY: 73 years-old Female presenting with Surgical Post Op. TECHNIQUE: Frontal and lateral views of the left knee were obtained. COMPARISON: 01/25/2019. FINDINGS: There has been interval total left knee arthroplasty with patellar resurfacing. Expected intra-articu lar and soft tissue emphysema. No malalignment or periprosthetic fracture. No periprosthetic lucency. Overlying skin monique. Mild surrounding soft tissue swelling. IMPRESSION: Expected postsurgical appearance status post total left knee arthroplasty with patellar resurfacing. Electronically signed by: Heber Blandon M.D. 04/04/2019 3:33 PM
--- NOTE | 2019-04-04 16:17 | Anesthesiology Progress Note ---
Date of Service April 04, 2019 Anesthesia Post Procedure Vital Signs Vital Signs: Temp Pulse Pulse Resp BP BP Pulse Ox 04/04/19 16:15 74 12 140/62 96 04/04/19 16:05 36.3 C L 81 20 132/67 98 04/04/19 15:55 61 17 151/69 H 99 04/04/19 15:45 57 L 13 134/69 99 04/04/19 15:35 69 18 142/76 H 98 04/04/19 15:25 65 17 168/66 H 95 04/04/19 15:15 58 L 13 140/67 99 04/04/19 15:05 68 20 152/70 H 97 04/04/19 14:57 36.5 C 69 16 147/74 H 99 04/04/19 10:04 37 C 67 18 174/85 H 98 Transfer of Care Handoff Completed per policy Notes Mental Status: alert / awake / arousable Patient Amnestic to Procedure: Yes Nausea / Vomiting: adequately controlled Pain: adequately controlled Airway Patency, RR, SpO2: stable & adequate BP & HR: stable & adequate Hydration State: stable & adequate Neuraxial Anesthesia: was administered and sensory block is resolving Anesthetic Complications: no major complications apparent
[2019-04-04] MEDS ORDERED: POLYETHYLENE (MIRALAX) 17 GM PACK PO PRN (16:26)
[2019-04-04] MEDS ORDERED: ONDANSETRON INJ 2 MG/ML 2 ML VIAL IV PRN (16:26)
[2019-04-04] MEDS ORDERED: METOCLOPRAMIDE HCL INJ 5 MG/ML 2 ML VIAL IV PRN (16:26)
[2019-04-04] MEDS ORDERED: MAGNESIUM HYDROXIDE SUSP 30 ML UDC PO PRN (16:26)
[2019-04-04] MEDS ORDERED: ALUMINUM/MAGNESIUM SUSP 30 ML UDC PO PRN (16:26)
[2019-04-04] MEDS ORDERED: TRIAMCINOLONE ACET 0.5% CR 15 GM TUBE TOP PRN (16:26)
[2019-04-04] MEDS ORDERED: bisacodyL 10 MG SUPP PR PRN (16:26)
[2019-04-04] MEDS ORDERED: VANCOMYCIN CONSULT ACTIVE PRN (16:26)
[2019-04-04] MEDS ORDERED: HYDROCORTISONE 2.5% CR 30 GM TUBE EXT PRN (16:26)
[2019-04-04] MEDS ORDERED: NALOXONE HCL 0.4 MG/1 ML VIAL/CARP IV PRN (16:26)
[2019-04-04] MEDS ORDERED: HYDROmorphone INJ 0.5 MG/0.5 ML SYR IV PRN (16:26)
[2019-04-04] MEDS ORDERED: CLOBETASOL PROPIONATE 0.05% OINT 15 GM TUBE EXT PRN (16:26)
[2019-04-04] MEDS: FERROUS GLUCONATE 324 MG TAB PO SCH (17:35)
[2019-04-04] MEDS: ASCORBIC ACID 500 MG TAB PO SCH (17:35)
--- NOTE | 2019-04-04 18:01 | Operative Report ---
DATE OF OPERATION: 04/04/2019 SURGEON: Bijan Lamar MD FIBREGLASS LAMINATOR: LATIA Parker PREOPERATIVE DIAGNOSIS: Left knee degenerative joint disease. POSTOPERATIVE DIAGNOSIS: Left knee degenerative joint disease. PROCEDURE PERFORMED: Left cemented posterior stabilized total knee arthroplasty. COMPLICATIONS: None. ESTIMATED BLOOD LOSS: 50 mL. FLUID REPLACEMENT: 1400 mL crystalloid fluid replacement. TOURNIQUET TIME: 50 minutes at 300 mmHg. ANESTHESIA: Spinal with adductor canal block. DRAINS: None. SPECIMENS: Left knee sent for pathology. OPERATIVE INDICATIONS: The patient is a 73-year-old female who has had a long history of intermittent on and off bilateral knee pain and discomfort. She had undergone a right knee replacement in the past. She underwent a left knee arthroscopy 2 years ago which provided minimal relief. 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 She failed all conservative care and elected to proceed with total knee arthroplasty. OPERATIVE FINDINGS: Operative findings revealed fairly extensive grade 4 [id number] disease in the medial and patellofemoral compartments. Not much eburnation, but full thickness cartilage loss. 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 Large knee joint effusion. OPERATIVE IMPLANTS: Operative implants consisted of: 1. Biomet Vanguard size 60 left posterior stabilized femoral component. 2. A Biomet size 63 tibial tray. 3. A 10 mm posterior stabilized polyethylene insert. 4. A 25 x 8 all poly patella. OPERATIVE PROCEDURE: The patient was taken to the operating room, identified and placed on the operating table in supine position. All contact areas were appropriately padded. IV antibiotics provided by anesthesia team. A spinal anesthetic and adductor canal block had been provided in the holding area. Lee catheter was placed in sterile fashion. Left thigh tourniquet was then placed and left lower extremity was then prepped and draped in usual sterile fashion. Left leg was elevated and exsanguinated with an Esmarch and tourniquet was placed at 300 mmHg. An anterior approach of the left knee was then performed through a longitudinal incision centered over the patella. Sharp dissection was carried through subcutaneous tissue down to the level of the extensor mechanism. A medial parapatellar arthrotomy incision was made. Some subperiosteal dissection was carried out medially. The fat pad was resected from beneath the patellar tendon. The lateral patellofemoral ligament was released. The patella was subluxated laterally and the knee was flexed. The osteophytes were taken off the distal femur. The ACL and PCL were then released from the distal femur and the tibia subluxated anteriorly. The external tibial alignment jig was then placed in the anterior face of the tibia and adjusted 14 mm medially. Proximal tibial cut was made to remove about 2-3 mm of bone from the medial side. Tibia sized to a size 63. Attention was then drawn to the femur. The distal femur was entered with a sharp drill bit. Intramedullary canal was suctioned. A left 5-degree valgus cutting guide was placed. Distal femoral cutting block was pinned in place. Distal femoral cut was made to take an additional 3 mm of bone off the distal femur. Femur was then sized to small medial and lateral dimensions. The AP cutting block was pinned parallel to the epicondylar axis, which was 5 degrees of external rotation. The anterior cut, anterior chamfer cut, posterior cut, posterior chamfer cuts were made. Box cutting guide was placed and adjusted slightly lateral and the box cut was made. The knee was flexed. The remnants of the medial and lateral menisci were excised. The osteophytes were taken off the posterior aspect of the femur. Trial femoral component was placed. Tibial tray was pinned in maximum external rotation and the drill and stem punch were used to create defect in proximal tibia for the tibial tray. The knee was then trialed with 10 mm insert fit most appropriately. Attention was then drawn to patella. The patella was cleaned of all soft tissues. Patella was quite small and thin. The patella thickness measured 19 mm and was cut down to 13. It was sized to a size 25 patella. Lug holes were drilled for 25 patella. Lateral osteophyte was removed. Patella button was placed. Knee was taken through range of motion and the patella tracked nicely with no thumbs test. Attention was then drawn toward placement of permanent components. All trial components were removed. Bone plug was placed in the distal femur to limit blood loss. A double batch of Palacos G cement was mixed. A Biomet Vanguard size 60 left posterior stabilized femoral component, size 63 tibial tray, 10 mm posterior stabilized polyethylene insert, and a 25 x 8 all poly patella then cemented in place. Knee was brought into full extension until cement hardened. A final cement check was then performed. Pericapsular tissues were injected with a total of 100 mL combination of 20 mL of Exparel, 30 mL of normal saline, 50 mL of 0.25% Marcaine with epinephrine. The patient did receive 1 gram of tranexamic acid. The tourniquet was then let down for a tourniquet time of 50 minutes. Hemostasis was assured using electrocautery. Extensor mechanism was then closed with combination of #1 PDS suture and #1 Vicryl suture in a [id number] fashion. Extensor mechanism was checked and found to be intact. Subcutaneous tissues were then closed with #2 Dexon suture in a buried interrupted fashion. Skin was closed with skin monique. Leg was then cleaned, dried and a sterile dressing of Xeroform, 4 x 4, sterile cast padding and Travis bandage were applied. The patient then transferred to the recovery room in stable condition. The patient tolerated the procedure well with no complication. All needle and sponge counts were correct at the end of the operation. I attest to the content of the Intraoperative Record and any orders documented therein. Any exception s are noted below.
[2019-04-04] MEDS: OXYCODONE HCL IR 5 MG TAB (IMMEDIATE RELEASE) PO PRN (19:36)
--- NOTE | 2019-04-04 20:35 | Progress Note ---
DATE: 04/04/2019 SUBJECTIVE: A 73-year-old female postop from a left knee replacement. She is doing well. Does not have any feeling yet back in her legs. No chest pain or shortness of breath. Not feeling dizzy or lightheaded. OBJECTIVE: VITAL SIGNS: Temperature is 36.6. Vital signs stable. GENERAL: Shows a pleasant, middle-aged female. She is sitting up in bed and talking to her , looks comfortable. LUNGS: Clear to auscultation. HEART: Regular rate and rhythm. ABDOMEN: Soft, nontender, nondistended. EXTREMITIES: Grossly neurovascularly intact except as follows: Examination of the left lower extremity reveals the leg to be well aligned. Dressing is clean, dry and intact. She has got good distal pulse and brisk refill. No significant sensory or motor function yet. X-RAYS: Left knee from recovery room were reviewed. Shows a cemented posterior stabilized total knee arthroplasty. Components look to be in good position. No signs of problems. ASSESSMENT: A 73-year-old female postop from a left knee replacement, doing pretty well. Her spinal is still in effect. PLAN: 1. DVT prophylaxis including thigh-high TEDs, SCDs, and we are going to use aspirin for the next 6 weeks twice a day. 2. PT/OT. She should weightbear as tolerated. Left total knee protocol. 3. Pain control, currently doing well. We will try and stick to using Tylenol and oxycodone as she has done okay with that. She has done well with tramadol or Toradol in the past. 4. IV antibiotics x24 hours. 5. Disposition: She is hoping to be discharged to home and likely have some home health for the first 2 weeks.
[2019-04-04] MEDS: ASPIRIN 81 MG ECTAB PO SCH (21:22)
[2019-04-04] MEDS: ACETAMINOPHEN 500 MG TAB PO SCH (21:22)
[2019-04-04] MEDS: carvediloL 3.125 MG TAB PO SCH (21:22)
[2019-04-04] MEDS: SENNA 8.6 MG TAB PO SCH (21:22)
[2019-04-04] MEDS: DOCUSATE SODIUM 100 MG CAP PO SCH (21:22)
[2019-04-04] MEDS ORDERED: TRANEXAMIC ACID 1,000 MG in 0.9 % SODIUM CHLORIDE 100 ML IV ONE (21:30)
[2019-04-04] MEDS ORDERED: INFLUENZA ADMINISTRATION CHARGE ONE (21:45)
[2019-04-04] MEDS ORDERED: INFLUENZA VIRUS QUAD VACCINE 0.5 ML SYR IM ONE (21:45)
[2019-04-04] MEDS: SODIUM CHLORIDE 0.9% 1000ML 1,000 ML IV SCH (21:55)
[2019-04-04] MEDS ORDERED: VANCOMYCIN HCL 1,000 MG in SODIUM CHLORIDE 0.9% 250 ML IV ONE (23:00)
[2019-04-05] MEDS: OXYCODONE HCL IR 5 MG TAB (IMMEDIATE RELEASE) PO PRN ×5 (00:04→20:36)
[2019-04-05] MEDS: ACETAMINOPHEN 500 MG TAB PO SCH ×3 (05:03→22:00)
[2019-04-05] MEDS: SODIUM CHLORIDE 0.9% 1000ML 1,000 ML IV SCH (05:04)
[2019-04-05 06:03] LABS: Hematocrit (blood only) 36.9 % (37-47); Hemoglobin 12.3 g/dL (12.0-16.0); Mean Corpuscular Hemoglobin 29.9 pg (25-34); Mean Corpuscular Hgb Conc 33.3 g/dL (32-36); Mean Corpuscular Volume 89.6 fL (80-100); Mean Platelet Volume 9.8 fL (7.4-10.4); Platelet Count 187 K/uL (130-400); RDW Coefficient of Variation 14.6 % (11.5-14.5); RDW Standard Deviation 48.1 fL (36.4-46.3); Red Blood Count 4.12 M/uL (4.2-5.4); White Blood Count 9.45 K/uL (4.8-10.8)
[2019-04-05 06:33] LABS: BUN Creatinine Ratio 21.3 (10-20); Calcium 8.5 mg/dl (8.5-10.1); Creatinine Clr Calc Pharmacy 73.3 ml/min; Est GFR (African American) 98.6; Est GFR (Non-African American) 85.1; Potassium 3.8 mmol/L (3.5-5.1)
[2019-04-05] MEDS: DOCUSATE SODIUM 100 MG CAP PO SCH ×2 (07:29→20:27)
[2019-04-05] MEDS: ASPIRIN 81 MG ECTAB PO SCH ×2 (07:29→20:27)
[2019-04-05] MEDS: MULTIVITAMIN TAB PO SCH (07:29)
[2019-04-05] MEDS: EZETIMIBE 10 MG TABLET PO SCH (07:29)
[2019-04-05] MEDS: CALCIUM CARBONATE 1250MG TAB PO SCH (07:29)
[2019-04-05] MEDS: carvediloL 3.125 MG TAB PO SCH ×2 (07:30→20:27)
[2019-04-05] MEDS: FERROUS GLUCONATE 324 MG TAB PO SCH ×2 (07:30→17:48)
[2019-04-05] MEDS: ASCORBIC ACID 500 MG TAB PO SCH ×2 (07:30→17:48)
[2019-04-05] MEDS: PANTOprazole 40 MG TAB PO SCH (07:30)
--- NOTE | 2019-04-05 07:36 | Anesthesiology Progress Note ---
Date of Service April 05, 2019 Anesthesia Post Procedure Vital Signs Vital Signs: Temp Pulse Pulse Pulse Resp BP BP 04/05/19 02:53 36.9 C 82 16 129/73 04/04/19 22:58 36.7 C 87 14 122/70 04/04/19 21:17 68 16 112/67 04/04/19 19:21 36.6 C 69 16 126/71 04/04/19 18:33 36.7 C 72 16 132/77 04/04/19 17:31 37.2 C 62 16 149/84 H 04/04/19 16:58 36.4 C L 66 16 129/78 04/04/19 16:25 36.5 C 61 18 146/76 H 04/04/19 16:15 74 12 140/62 04/04/19 16:05 36.3 C L 81 20 132/67 04/04/19 15:55 61 17 151/69 H 04/04/19 15:45 57 L 13 134/69 04/04/19 15:35 69 18 142/76 H 04/04/19 15:25 65 17 168/66 H 04/04/19 15:15 58 L 13 140/67 04/04/19 15:05 68 20 152/70 H 04/04/19 14:57 36.5 C 69 16 147/74 H 04/04/19 10:04 37 C 67 18 174/85 H Pulse Ox 04/05/19 02:53 96 04/04/19 22:58 97 04/04/19 21:17 97 04/04/19 19:21 96 04/04/19 18:33 96 04/04/19 17:31 99 04/04/19 16:58 96 04/04/19 16:25 98 04/04/19 16:15 96 04/04/19 16:05 98 04/04/19 15:55 99 04/04/19 15:45 99 04/04/19 15:35 98 04/04/19 15:25 95 04/04/19 15:15 99 04/04/19 15:05 97 04/04/19 14:57 99 04/04/19 10:04 98 Notes Mental Status: alert / awake / arousable and participated in evaluation Patient Amnestic to Procedure: Yes Nausea / Vomiting: adequately controlled Pain: adequately controlled Airway Patency, RR, SpO2: stable & adequate BP & HR: stable & adequate Hydration State: stable & adequate Neuraxial Anesthesia: was administered and sensory block resolved Anesthetic Complications: no major complications apparent and Pt Satisfied with anesthetic care
--- NOTE | 2019-04-05 07:54 | Progress Note ---
DATE: 04/05/2019 SUBJECTIVE: A 73-year-old white female postop day 1 from a left knee replacement. She is doing pretty well. Had a bit more pain overnight. Does not really do well with pain medicines. The Dilaudid caused some confusion for about an hour. She is preferring to stick to the oxycodone. No chest pain or shortness of breath. Not feeling dizzy or lightheaded. OBJECTIVE: VITAL SIGNS: Temperature 36.9. Vital signs stable. GENERAL: Shows a pleasant, middle-aged female. She is sitting up in bed, looks comfortable. LUNGS: Clear to auscultation. HEART: Regular rate and rhythm. ABDOMEN: Soft, nontender, nondistended. EXTREMITIES: Grossly neurovascularly intact except as follows: Examination of the left lower extremity reveals the leg to be well aligned. She can dorsiflex and plantarflex her foot appropriately. She is neurologically intact. LABORATORY DATA: Hemoglobin 12.3, hematocrit 36.9. Electrolytes are stable. ASSESSMENT: A 73-year-old white female postoperative day 1 from a left knee replacement, doing pretty well. Pain is reasonably well controlled. Does not do well with pain medications. PLAN: 1. DVT prophylaxis including thigh-high TEDs, SCDs, and aspirin twice a day. 2. PT/OT. Weight bear as tolerated. Left total knee protocol. 3. Pain control, doing reasonably well with current pain meds. Cannot take Toradol or tramadol. She seems to do best with oxycodone, although it is not perfect as far as her pain control. We will stick with that for now along with Tylenol. 4. Disposition: Plan to discharge her home with some home health once adequately recovered.
[2019-04-05] MEDS ORDERED: dexAMETHasone 4 MG TAB PO SCH (08:00)
[2019-04-05] MEDS ORDERED: NON-FORMULARY MEDICATION (Coenzyme Q10 100 MG) PO SCH (09:00)
[2019-04-05] MEDS: SENNA 8.6 MG TAB PO SCH (20:27)
[2019-04-06] MEDS: OXYCODONE HCL IR 5 MG TAB (IMMEDIATE RELEASE) PO PRN ×4 (01:03→12:25)
[2019-04-06] MEDS: ACETAMINOPHEN 500 MG TAB PO SCH (05:24)
[2019-04-06] MEDS: PANTOprazole 40 MG TAB PO SCH (07:33)
--- NOTE | 2019-04-06 08:28 | Progress Note ---
DATE: 04/06/2019 SUBJECTIVE: A 73-year-old white female postop day 2 from a left knee replacement. She is doing quite a bit better today. Pain is better controlled. No chest pain or shortness of breath. Not feeling dizzy or lightheaded. OBJECTIVE: VITAL SIGNS: Temperature 37.1. Vital signs are stable. GENERAL: Reveals a pleasant, middle-aged female. She is sitting up in bed and looks pretty comfortable. EXTREMITIES: Examination of the left leg reveals the leg to be well aligned. Dressing is clean, dry and intact. Calf is soft and supple. She is neurologically intact. ASSESSMENT: A 73-year-old white female postoperative day 2 from a left knee replacement, doing pretty well. Pain is reasonably well controlled. No chest pain or shortness of breath. She is neurologically intact. PLAN: 1. DVT prophylaxis including thigh-high TEDs, SCDs, and aspirin twice a day. 2. PT/OT. Weight bear as tolerated. Left total knee protocol. 3. Pain control, doing well with current pain regimen. 4. Disposition: Plan to discharge to home with some home health later today.
[2019-04-06] MEDS ORDERED: predniSONE 5 MG TAB PO SCH (09:00)
[2019-04-06] MEDS: FERROUS GLUCONATE 324 MG TAB PO SCH (10:10)
[2019-04-06] MEDS: MULTIVITAMIN TAB PO SCH (10:10)
[2019-04-06] MEDS: carvediloL 3.125 MG TAB PO SCH (10:10)
[2019-04-06] MEDS: ASPIRIN 81 MG ECTAB PO SCH (10:10)
[2019-04-06] MEDS: CALCIUM CARBONATE 1250MG TAB PO SCH (10:11)
[2019-04-06] MEDS: DOCUSATE SODIUM 100 MG CAP PO SCH (10:11)
[2019-04-06] MEDS: ASCORBIC ACID 500 MG TAB PO SCH (10:11)
[2019-04-06] MEDS: EZETIMIBE 10 MG TABLET PO SCH (10:11)
--- NOTE | 2019-04-09 16:01 | Discharge Summary ---
ADMITTING PHYSICIAN AND SURGEON: Dr. Bijan Lamar. ADMITTING DIAGNOSIS: Left knee degenerative joint disease. SURGERY PERFORMED: Left total knee arthroplasty. SECONDARY DIAGNOSES: Coronary artery disease, hiatal hernia, gastroesophageal reflux disease, mild obesity, hypertension, elevated cholesterol, TIA, polymyalgia rheumatica. CONSULTS: None obtained. HISTORY AND PHYSICAL EXAMINATION: Well documented in the patient's chart. HOSPITAL COURSE: The patient was admitted on 04/04/2019 underwent total knee arthroplasty, tolerated the procedure well. There were no complications. She was transferred to the PACU postoperatively and later to the orthopedic floor for further care. She was given vancomycin for antibiotic prophylaxis, PHYLLIS stockings, SCDs and aspirin for DVT prophylaxis. Hemoglobin, hematocrit and vital signs were monitored during her hospital stay and remained stable, did not require any blood transfusions. There were no complications. By postoperative day 2, she was tolerating a regular diet, pain was controlled with oral pain medicine. She was participating in physical therapy. Postop day 2, she was discharged home, set up with home health services. She was given printed discharge instructions as well as new prescriptions for extra strength Tylenol, aspirin, Zofran and oxycodone. Continue her home medicines. Continue physical therapy, weightbearing as tolerated, PHYLLIS stockings. Follow up approximately 2 weeks postop or sooner if there are any problems or concerns.
== END 2019-04-06 13:04 | disposition home health service (06) | DRG 470 ==
LOC: ASU 09:33 → 3E 14:57

== ENCOUNTER 2021-12-30 05:19 | Observation (INO) ==
--- NOTE | 2021-11-05 15:44 | PAT Medication Instructions ---
Medication Instructions Date of Service November 05, 2021 Home Medications carvedilol 3.125 mg tablet 3.125 mg PO BID ezetimibe 10 mg tablet (Zetia) 10 mg PO QAM polyethylene glycol 3350 17 gram/dose oral powder 17 gm PO DAILY PRN triamcinolone acetonide 0.5 % topical cream 1 appln TOPICAL BID PRN aspirin 81 mg tablet,delayed release 81 mg PO QAM calcium carbonate 600 mg-vitamin D3 10 mcg (400 unit) tablet (Calcium 600 + D(3)) 1 tab PO BID coenzyme Q10 100 mg capsule 200 mg PO QAM pantoprazole 40 mg tablet,delayed release 40 mg PO QAM STOP taking 2 weeks before surgery (or as soon as possible if surgery is within 2 weeks) coenzyme Q10 100 mg capsule 200 mg PO QAM STOP taking 24 hours before surgery triamcinolone acetonide 0.5 % topical cream 1 appln TOPICAL BID PRN DO NOT take the morning of surgery polyethylene glycol 3350 17 gram/dose oral powder 17 gm PO DAILY PRN calcium carbonate 600 mg-vitamin D3 10 mcg (400 unit) tablet (Calcium 600 + D(3)) 1 tab PO BID Take morning of surgery With a small sip of water, OTHERWISE NOTHING TO EAT OR DRINK AFTER MIDNIGHT: carvedilol 3.125 mg tablet 3.125 mg PO BID ezetimibe 10 mg tablet (Zetia) 10 mg PO QAM aspirin 81 mg tablet,delayed release 81 mg PO QAM (continue as normal unless told otherwise by surgeon) pantoprazole 40 mg tablet,delayed release 40 mg PO QAM Take evening before surgery carvedilol 3.125 mg tablet 3.125 mg PO BID polyethylene glycol 3350 17 gram/dose oral powder 17 gm PO DAILY PRN (if needed) calcium carbonate 600 mg-vitamin D3 10 mcg (400 unit) tablet (Calcium 600 + D(3)) 1 tab PO BID Other Notes If you have any questions please call us at [phone] or [phone] or [phone] or [phone]
--- NOTE | 2021-11-06 11:34 | History and Physical Report ---
DATE OF ADMISSION: 01/18/2022. CHIEF COMPLAINT: Persistent progressive left hip pain. HISTORY OF PRESENT ILLNESS: A 76-year-old female well known to me from bilateral knee replacements, one done 4 years and the other 5 years ago. Over the past several years, particularly in the past ye ar, she developed increased pain and discomfort in her left hip. She has been through extensive cons ervative treatment, which has been less successful over time. X-rays and MRI have shown progressive hip arthritis. She describes groin pain, thigh pain radiating down to her knee, but no further. No numbness. She now presents for surgical treatment. PAST MEDICAL HISTORY: 1. Hypertension. 2. Elevated cholesterol. 3. History of TIA or mini stroke in the past. 4. Low back pain. 5. Mild obesity. 6. Gastroesophageal reflux disease. 7. Hiatal hernia. 8. Coronary artery disease, status post stent placement x2. PAST SURGICAL HISTORY: Includes: 1. Left knee scope. 2. Bilateral knee replacements, right one done 5 years ago, left one 4 years ago. 3. Cataract surgery. 4. Colonoscopy. 5. Tonsillectomy. 6. Hysterectomy. 7. Cardiac stent placement. ALLERGIES: MULTIPLE AND LISTED IN THE EMR. MEDICATIONS: Include: 1. Aspirin. 2. Calcium. 3. Carvedilol. 4. Coenzyme Q. 5. Zetia. 6. Pantoprazole. 7. Polyethylene glycol. 8. Triamcinolone topical cream. SOCIAL HISTORY: A 76-year-old female. She is . Does not smoke. No significant alcohol inta ke. FAMILY HISTORY: Noncontributory. REVIEW OF SYSTEMS: Negative for diabetes. No chest pain or shortness of breath. No history of DVT or PE. No known bleeding problems. PHYSICAL EXAMINATION: GENERAL: Shows a pleasant middle-aged female, looks to be in pretty good health. HEENT: Benign. NECK: Supple. No lymphadenopathy. LUNGS: Clear to auscultation. HEART: Has a regular rate and rhythm. ABDOMEN: Soft, nontender, nondistended. EXTREMITIES: Grossly neurovascularly intact except as follows. Examination of the left hip and leg reveals the patient walks with an antalgic gait. She clearly mills ps on the left side. Leg lengths appear pretty equal. She has got pretty stiff hip with internal ro tation to neutral at best. This does re-create her pain. She has a negative straight leg raise. Kn ee incisions healed nicely without signs of swelling and her range of motion is 0 to 120. X-RAYS: X-rays of the left hip show advanced left hip arthritis. This has progressed significantly over the past 6 months. She has got fairly concentric disease. MRI: MRI from June was reviewed. It shows moderate hip arthritis. A small hip joint effusion. She has got bone marrow changes, particularly in the femoral head. ASSESSMENT: A 76-year-old female with multiple medical comorbidities including hypertension, elevate d cholesterol, history of transient ischemic attack in the past, back pain, gastroesophageal reflux d isease, hiatal hernia, coronary artery disease, status post stent placement along with bilateral knee replacements in the past with progressive left hip arthritis. She has failed conservative treatment and would like to have her left hip replaced. PLAN: We are going to take her to the operating room and do left total hip replacement. The risks a nd benefits of this procedure were explained to the patient and include but not limited to DVT, PE, d eath, infection, neurological injury, vascular injury, bleeding problem, pain, limited range of motio n, stiffness, failure to relieve her symptoms, incomplete relief of symptoms, need for further surger y in the future, fracture, leg length inequality, nerve palsy, etc. The patient understands and umang res to proceed. Informed consent was obtained. We did talk to her about taking her carvedilol the morning of surgery. She will follow back in clini c 2 weeks postop. She is planning to be discharged to home using [facility] program. She does apparently have these allergies. We will likely use vancomycin preoperatively. Job ID: [id number]
--- NOTE | 2021-11-08 12:00 | Anesthesiology Consultation ---
Date of Service November 08, 2021 Assessment & Plan (1) Encounter for pre-operative examination: - awaiting review of stress test report, most recent cardiology note and review if previous known history of palpitations for future surgery. - surgery to be delayed. Patient and surgeon's office made aware. When patient is re-scheduled, will need ENT clearance. - check [facility] am DOS. - Dr. Villegas workload note 11/08/21 [place]: "She has a hemorrhagic vocal cord. Intubation can aggravate it. Any anticoagulants can cause more bleeding and cause a permanent nodule on the vocal cord. My advice would be to delay." - Case discussed with Dr. Millard regarding adjusted surgery date to 11/12/21 in setting of sialoadenitis without antibiotics and hemorrhagic right true vocal cord on voice rest. He advised messaging ENT if surgery needs delayed from infection standpoint without antibiotic and if acceptable from that from their standpoint, patient would need cleared to have elective endotracheal tube intubation if necessary in setting of hemorrhagic right true vocal cord, to then notify surgeon's office after response. - acute ENT concerns, following with Dr. Villegas: 10/18/21 hemorrhagic right true vocal cord involving almost the entire right true vocal cord with no obvious hematoma. Voice rest and recheck in 2 weeks. Sialoadenitis. Unable to take antibiotics. Returns to [place] [facility] 11/15/21. - COVID screening: Per assessment on 11/08/2021: Travel screen negative, no known COVID-19 positive contacts or current COVID-19 related symptoms in past 2 weeks. Patient vaccinated. Chart Review Chart Review: Pending: Refer to Additional Notes / Consult section and Patient seen in Pre Admission Testing Teaching & Discussion Pre-Anesthesia Teaching/Discussion Notes: Instructed NPO after midnight before surgery, except medications with 15 cc of water. Medication instructions provided according to the PAT guidelines. History Surgery Operation Date: 11/12/21 12:30 Proposed Procedures p Left Total Hip Arthroplasty - Bijan Lamar MD Height/Weight Height: 5 ft 6 in Weight: 79 kg Allergies Allergy/AdvReac Type Severity Reaction Status Date / Time amoxicillin [From Augmentin] Allergy Severe violent Verified 11/08/21 12:23 vomiting, hematemesis clavulanic acid Allergy Severe violent Verified 11/08/21 12:23 [From Augmentin] vomiting, hematemesis ketorolac Allergy Severe itching Verified 11/05/21 15:07 from head to toe, nausea, throat tightening tapentadol Allergy Severe itching Verified 11/05/21 15:07 head to toe, dry mouth, tightening of throat, airway tramadol Allergy Severe itching Verified 11/05/21 15:07 from head to toe, nausea, throat tightening cefaclor Allergy Unknown full body Verified 11/05/21 15:07 swelling-SOB codeine Allergy Unknown OUT OF Verified 11/05/21 15:07 BODY,DIZZY COULDN'T FUNCTION ibuprofen Allergy Unknown FULL BODY Verified 11/05/21 15:07 SWELLING SOB nitrofurantoin Allergy Unknown SOB,WELTS Verified 11/05/21 15:07 ON SKIN oxycodone Allergy Unknown rash Verified 11/05/21 15:07 ranolazine Allergy Unknown palpitations, Verified 11/05/21 15:07 anxiety Ibfxvwx-NZB-JdP Reductase Allergy Unknown DOESN'T Verified 11/05/21 15:07 Inhibitor METABOLIZE-ACHES [Lihefva-Ptq-Qud Reductase Inhibitor] Medications Home Medications Medication Instructions Recorded Confirmed Last Taken carvedilol 3.125 mg tablet 3.125 mg PO BID tab 01/27/19 11/05/21 05/31/20 ezetimibe 10 mg tablet (Zetia) 10 mg PO QAM #90 tab 01/27/19 11/05/21 05/31/20 polyethylene glycol 3350 17 17 gm PO DAILY PRN gm 01/27/19 11/05/21 03/21/19 gram/dose oral powder triamcinolone acetonide 0.5 % 1 appln TOPICAL BID PRN #1 gm 01/27/19 11/05/21 Unknown topical cream aspirin 81 mg tablet,delayed 81 mg PO QAM 06/01/20 11/05/21 05/31/20 release calcium carbonate 600 mg-vitamin 1 tab PO BID 06/01/20 11/05/21 05/31/20 D3 10 mcg (400 unit) tablet (Calcium 600 + D(3)) coenzyme Q10 100 mg capsule 200 mg PO QAM cap 08/03/20 11/05/21 Unknown pantoprazole 40 mg tablet,delayed 40 mg PO QAM 11/05/21 11/05/21 Unknown release Past Medical History Medical History (Updated 11/08/21 @ 16:36 by Jaylyn Fong PA-C) Abnormal findings on laryngoscopy 10/18/21 hemorrhagic right true vocal cord involving almost the entire right true vocal cord with no obvious hematoma. Voice rest and recheck in 2 weeks. Arthritis of left hip CAD (coronary artery disease) 2009 (stent x 1), 2016 (stent x1) Chronic idiopathic urticaria Degenerative disc disease Degenerative joint disease of left hip Dyslipidemia Gastroesophageal reflux disease intermittent, triggered by spicy or tomato based foods Hiatal hernia History of benign breast biopsy left-benign History of COVID-2019 > not hospitalized History of mitral valve prolapse Hypertension controlled, stable per pt; home readings 130/70, at times elevated in clinic if stressed Impaired fasting glucose A1c 6.5% 11/05/21 Irregular heartbeat follows with [facility] in [facility] > Dr. Cornelius Scruggs Osteoarthritis of left hip PMR (polymyalgia rheumatica) follows with rheumatology Rheumatoid arthritis Pt denies, not on rheumatology records Schatzki's ring Stroke unknown to pt, on MRI Tremor Vertigo Patient denies h/o seizures, heart attack, heart failure, blood clots or blood transfusions. Exercise / Class Metabolic Activity II 4-5 Yardwork/Stairs/Walk up hill (denies CP or SOB with 1 FOS) Past Family History Family History Father Family history of diabetes mellitus Myocardial infarction Hearing loss Hypertension Cancer Heart disease Diabetes Uncle Family history of diabetes mellitus Diabetes Mother Allergies Asthma Daughter Diabetes type 1 Denies family history of Ovarian cancer Prostate cancer No family history of adverse response to anesthesia No family history of bleeding disorder Breast cancer Colorectal cancer Stroke Past Surgical History Surgical History (Updated 11/08/21 @ 12:09 by Jaylyn Fong PA-C) History of arthroscopy of left knee History of bilateral knee replacement left 04/04/19 [facility]: SAB at L3-L4 x 1 attempt + PNB. No postop issues per anesthesia progress note. History of cardiac cath 2009 (stent x 1), 2017 (stent x1) History of cataract surgery B/L History of colonoscopy History of D&C History of esophagogastroduodenoscopy (EGD) History of tonsillectomy and adenoidectomy History of total abdominal hysterectomy and bilateral salpingo-oophorectomy Past Anesthesia History No Family Hx of Anesthesia Complications and Other (slow to wake; denies re- intubation) History of PONV No Hx of PONV and No Hx of Motion Sickness Social History Smoking Status: Never smoker Do You Dip or Chew Tobacco: No Hx Alcohol Use: Yes Alcohol type: wine and hard liquor alcohol intake frequency: a few times a month Hx Substance Use: No substance use type: does not use Review of Systems Snoring, denies witnessed apneas or sleep studies. Occasional cough if dry throat. Occasional, chronic palpitations "sensation of heart racing"-denies change or worsening. Patient denies chest pain, shortness of breath, dyspnea on exertion, fever, chills, or wheezing. Physical Exam Vital Signs Vitals BP 142/76 P 62 TEMP 98.5 SP02 98% on RA RESP 17 Physical Full cervical extension range of motion without pain TMD 3.5 finger breaths Mallampati Score 2 Dentition: intact, several missing teeth back, bridge lower side teeth bilat, multiple crowns-none in front; denies chipped or loose teeth, implants Lungs: normal respiratory effort. Clear throughout to auscultation, no adventitious breath sounds Cardiac: regular rate and rhythm, no murmurs noted Carotid arteries: negative bruit bilat Lab Results Anesthesia Preop Results Results Anesthesia Widget: WBC 4.99 K/uL (4.8-10.8) 11/08/21 Hgb 13.4 g/dL (12.0-16.0) 11/08/21 Hct 40.8 % (37-47) 11/08/21 Plt 250 K/uL (130-400) 11/08/21 Na 141 mmol/L (136-145) 11/05/21 K 4.2 mmol/L (3.5-5.1) 11/05/21 Cl 107 mmol/L (98-107) 11/05/21 CO2 29 mmol/L (21-32) 11/05/21 BUN 27 mg/dl (6-23) H 11/05/21 Creat 0.82 mg/dl (0.6-1.2) 11/05/21 Glucose Level 116 mg/dl (70-99(Fasting)) H 11/05/21 PT 11.2 Seconds (9.0-12.0) 11/08/21 PTT 28.9 Seconds (21.0-31.0) 11/08/21 INR 1.1 (0.9-1.1) 11/08/21 HA1c 6.5 % (4.5-5.6) H 11/05/21 Blood Type A Positive 11/08/21 Antibody Screen NEGATIVE 11/08/21 Testing Electrocardiogram Date: 11/08/21 NSR, rate 61 bpm Chest X-Ray Date: 11/08/21 The cardiac silhouette is mildly enlarged. Coronary arterial stent grafts. No pneumothorax, pleural effusion, airspace consolidation or overt pulmonary edema. Degenerative changes of the shoulders and spine. IMPRESSION: No acute process. Echocardiogram Date: 10/21/20 EF 55-59% Normal LV wall motion Mildly enlarged left atrium Mild to moderate mitral regurgitation Stress Test Date: 07/24/19 Pharmacologic MPHR 82% Negative for inducible ischemia or previous HI EF 70%
--- NOTE | 2021-12-25 18:32 | History and Physical Report ---
DATE OF ADMISSION: 12/30/2021. CHIEF COMPLAINT: Persistent left hip pain and discomfort. HISTORY OF PRESENT ILLNESS: The patient is a 76-year-old white female well known to me from previous bilateral knee replacements, one done 4 years ago and the other 5 years ago. Over the past couple o f years, she has developed increased pain and discomfort in her left hip, groin, and thigh area. We have treated her conservatively with medicines, intermittent injections, which have become less succe ssful over time. We do have x-rays show progressive hip arthritis. She would like to proceed with s urgical management. She had been scheduled for surgery in the past, but had to cancel it due to some vocal cord and laryngitis issues. These have now resolved and she wants to have her hip fixed. PAST MEDICAL HISTORY: 1. Hypertension. 2. Elevated cholesterol. 3. History of TIA without any swelling. 4. Back pain. 5. Mild obesity. 6. Gastroesophageal reflux disease. 7. Hiatal hernia. 8. Coronary artery disease, status post stent placement x2. PAST SURGICAL HISTORY: Include: 1. Left knee arthroscopy. 2. Bilateral knee replacements, right one done 5 years ago, left one done 4 years ago. 3. Cataract surgery. 4. Colonoscopy. 5. Tonsillectomy. 6. Hysterectomy. 7. Cardiac stent placement. ALLERGIES: As per the EMR system. CURRENT MEDICATIONS: Include: 1. Aspirin. 2. Calcium. 3. Carvedilol. 4. Coenzyme Q. 5. Zetia. 6. Pantoprazole. 7. Polyethylene glycol. 8. Triamcinolone cream. SOCIAL HISTORY: A 76-year-old female. She is . She does not smoke. No significant alcohol intake. FAMILY HISTORY: Noncontributory. REVIEW OF SYSTEMS: Negative for diabetes, neurologic problem, vascular problems or bleeding disorder s. No chest pain or shortness of breath. No history of DVT or PE. PHYSICAL EXAMINATION: GENERAL: Shows a pleasant middle-aged female, looks to be in good health. HEENT: Benign. NECK: Supple. No lymphadenopathy. LUNGS: Clear to auscultation. HEART: Regular rate and rhythm. ABDOMEN: Soft, nontender, nondistended. EXTREMITIES: Grossly neurovascularly intact except as follows. Examination of the left hip reveal patient walks with an antalgic gait. She limps on the left side. Leg lengths appear equal. She has pain with hip motion, particularly internal rotation. Internally rotates to about neutral. This does recreate her pain. Negative straight leg raise. Examination of the left knee reveals a well-healed incision. No swelling. Range of motion is 0 to 1 20. X-RAYS: X-rays of the left hip show advanced hip arthritis that has progressed significantly over th e past 12 months. Fairly concentric disease. Not a lot of osteophyte formation. IMAGING: MRI was reviewed. It shows a moderate hip arthritis with joint effusion. She has bone mar row changes in the femoral head. ASSESSMENT: A 76-year-old white female with multiple medical comorbidities including mild obesity, l ow back pain, history of transient ischemic attack in the past with cerebrovascular injury, elevated cholesterol, hypertension, gastroesophageal reflux disease, hiatal hernia, status post cardiac stent placement with advanced left hip degenerative joint disease. This has progressed significantly over the past year. She has failed conservative treatment and would like to have her hip replaced. She h as been scheduled before but had to cancel due to some tonsil issues which are being cleared. PLAN: We will proceed with left hip replacement. The risks and benefits of this procedure were expl ained to the patient include but not limited to DVT, PE, , infection, neurological injury, vascu lar injury, bleeding problem, pain, limited range of motion, stiffness, failure to relieve her sympto ms, incomplete relief of symptoms, need for further surgery in the future, etc. The patient understa nds and desires to proceed. Informed consent was obtained. I already talked about taking her carvedilol the morning of surgery. She has not done well with some medicines including Toradol and tramadol. We will likely use Dilaudid for postoperative pain contro l. She will use [facility] program. Job ID: [id number]
[~2021-12-30 05:19] MED LIST changes: -ACETAMINOPHEN 500 MG TAB PO SCH; -BUPIVACAINE 0.5 % 5 MG/1 ML PF 10ML VIAL ONE; -BUPIVACAINE LIPOSOME/PF 266 MG, BUPIVACAINE/EPINEPHRINE 50 ML, SODIUM CHLORIDE 0.9% 30 ... INFIL SCH; -FAMOTIDINE 20 MG TAB PO SCH; -GABAPENTIN 300 MG CAP PO SCH; -LR 500ML BOLUS, THEN 15ML/HR IV SCH; -LR 60ML/HR IV SCH; -METOCLOPRAMIDE HCL 10 MG TABLET PO SCH; -ROPIVACAINE 0.5% 5 MG/ML 30 ML VIAL ONE; -TRANEXAMIC ACID 1,000 MG **IV Pre-op IV SCH; +VANCOMYCIN CONSULT ACTIVE PRN; -VANCOMYCIN HCL 1,250 MG in SODIUM CHLORIDE 0.9% 250 ML IV SCH
[2021-12-30] MEDS ORDERED: ACETAMINOPHEN 500 MG TAB PO SCH (06:00)
[2021-12-30] MEDS ORDERED: LR 60ML/HR IV SCH (06:00)
[2021-12-30] MEDS ORDERED: SODIUM CHLORIDE 0.9% 1000ML IV SCH (06:00)
[2021-12-30] MEDS ORDERED: GABAPENTIN 300 MG CAP PO SCH (06:00)
[2021-12-30] MEDS ORDERED: TRANEXAMIC ACID 1,000 MG **IV Pre-op IV SCH (06:00)
[2021-12-30] MEDS ORDERED: VANCOMYCIN HCL 1,000 MG/270 ML BAG IV SCH (06:00)
[2021-12-30] MEDS ORDERED: FAMOTIDINE 20 MG TAB PO SCH (06:00)
[2021-12-30] MEDS ORDERED: BUPIVACAINE 0.5 % 5 MG/1 ML PF 10ML VIAL ONE (06:18)
[2021-12-30 06:22] LABS: BUN Creatinine Ratio 32.9 (10-20); Calcium 9.3 mg/dl (8.5-10.1); Creatinine Clr Calc Pharmacy 64.8 ml/min; Est GFR (African American) 84.9 ml/min; Est GFR (Non-African American) 73.2 ml/min; Potassium 3.9 mmol/L (3.5-5.1)
[2021-12-30] MEDS ORDERED: BUPIVACAINE 0.5 % 5 MG/1 ML MPF 30ML VIAL ONE (06:40)
[2021-12-30] MEDS ORDERED: EPINEPHrine INJ 1 MG/ML AMP ONE (06:41)
[2021-12-30] MEDS ORDERED: MIDAZOLAM HCL 1 MG/ML 2ML VIAL ONE ×2 (06:46→06:52)
[2021-12-30] MEDS ORDERED: fentaNYL citrate 100 MCG/2 ML VIAL ONE (06:46)
[2021-12-30] MEDS ORDERED: PROPOFOL IV EMULSION 10 MG/ML 20 ML VIAL IV ONE (06:47)
[2021-12-30] MEDS ORDERED: MoRPHine SULFATE PF 1 MG/ML 10 ML AMP/VIAL ONE ×2 (06:47→06:49)
--- NOTE | 2021-12-30 06:55 | History & Physical Bridge Note ---
Date of Service December 30, 2021 History & Physical Bridge Note I have examined the patient, reviewed the History & Physical and in the interval since the performance of the History & Physical I have noted the following changes of clinical significance: no changes noted
[2021-12-30] MEDS ORDERED: ONDANSETRON INJ 2 MG/ML 2 ML VIAL IV PRN ×2 (07:41→10:23)
[2021-12-30] MEDS ORDERED: NALOXONE HCL 0.4 MG/1 ML VIAL/CARP IV PRN ×2 (07:41→10:23)
[2021-12-30] MEDS ORDERED: NALBUPHINE HCL INJ 10 MG/ML AMP IV PRN (07:41)
[2021-12-30] MEDS ORDERED: MoRPHine SULFATE PF 1 MG/ML 10 ML AMP/VIAL INT SPINAL ONE (07:41)
[2021-12-30] MEDS ORDERED: NALOXONE HCL 1 MG in SODIUM CHLORIDE 0.9% 1000ML 1,000 ML IV PRN (07:41)
[2021-12-30] MEDS ORDERED: MoRPHine SULFATE 2 MG/ML CARP IV PRN (07:41)
[2021-12-30] MEDS ORDERED: ePHEDrine sulfate 50 MG/ML AMP IV PRN (07:41)
[2021-12-30] MEDS ORDERED: NALOXONE HCL 0.08 MG in SYRINGE 1.8 ML IV PRN (07:41)
[2021-12-30] MEDS ORDERED: diphenhydrAMINE 50 MG/ML VIAL IV PRN (07:41)
[2021-12-30] MEDS ORDERED: LACTATED RINGER'S 500 ML IV PRN (07:41)
[2021-12-30] MEDS ORDERED: SODIUM CHLORIDE 0.9% 1000ML 1,000 ML IV SCH (07:45)
[2021-12-30] MEDS ORDERED: NO NARCOTICS OR SEDATIVES SCH (07:45)
[2021-12-30] MEDS ORDERED: DC INTRASPINAL MORPHINE SCH (07:45)
[2021-12-30] MEDS ORDERED: GLYCOPYRROLATE 0.2 MG/ML VIAL ONE (07:49)
--- NOTE | 2021-12-30 08:51 | Operative Report ---
PG Post Operative Report Pre & Post Diagnosis Operation Date: 12/30/21 07:00 Pre-Op Diagnosis: Left Hip Osteoarthritis Post-Op Diagnosis: Left Hip Osteoarthritis I identified the patient and participated in the time-out.: Yes Procedure Operation Date: 12/30/21 07:00 Actual Procedures p Left Total Hip Arthroplasty(Left) - Bijan Lamar MD Surgeon Bijan Lamar MD Health And Wellness Instructor Jayesh Wayne PA-C Estimated Blood Loss 200 Findings Consistent with Post-Op Diagnosis Fluids 1000 cc Specimens Left femoral head sent for pathology Anesthesia Type Spinal MAC Complications none Disposition Accompanied Patient To Recovery: Yes Indications Patient is a 76-year-old female who has had both of her knees replaced. Over the past several years she developed increased pain discomfort in her left hip which is gradually gotten more severe and more incapacitating. As she failed all conservative measures. X-rays showed progressive hip arthritis. This is confirmed by MRI. She elected proceed with right total hip arthroplasty. Description of Procedure Operative implants consist of: 1 Biomet G7 size 50 mm acetabular shell. 2. 6.5 cancellous acetabular screws 1 of 35 mm length 1 of 20 mm length. 3. Gypsum hole customer success manager. 4. Highly cross-linked polyethylene liner with a 50 mm outer diam 36 mm diameter. 5. DePuy Corail size 11 KLA short neck/125 degree angle femoral stem. 6. +5/36 mm ceramic articular ball. The patient was taken to the operating, identified, and placed on the operating table supine position protectors were properly padded. IV antibiotics tried by anesthesia team. Spinal anesthetic and been implemented holding area. Lee catheter was placed in sterile fashion. Patient was then placed in the right lateral decubitus position. Axillary roll was placed. A Stulberg hip positioner was used for positioning. Left hip and leg were then prepped and draped in usual sterile fashion. A posterolateral approach to the left hip was then performed to a curvilinear incision centered over the greater trochanter. Sharp dissection was carried through subcutaneous tissue down to the IT band gluteal fascia. IT band gluteal fascia incised longitudinally in line with skin incision. The underlying greater bursa was excised. The piriformis and external rotators were tagged and taken off the posterior aspect hip joint capsule. Great care was taken throughout the procedure to protect the sciatic nerve at all times. A posterior capsulotomy was then performed leaving a large flap for later repair. Hip was internally rotated and dislocated. A femoral neck osteotomy cut was made with a Final Cut about 12 mm above the lesser trochanter. Femoral head was removed and sent for pathology. The femur was retracted anteriorly. Attention drawn the acetabulum. The acetabular labrum was excised. Was fairly ossified. The pulmonary fat was excised. Sequential reaming the acetabulum was then performed beginning with size 43 and progressing up to 49. I did reamed a little bit with a 50 reamer and then placed a 50 mm Biomet G7 acetabular shell in about 40 degrees lateral opening and 20 degrees of anteversion. It was fixed with two 6.5 cancellous acetabular screws. A trial liner was placed. Attention drawn the femur. The proximal femur was done with a TrabajoPanel cutter followed by canal finder. I then broached begin the size 8 and progressing up to an 11. Got excellent fit at 11. Could not quite get this the whole way down but had excellent fit. We then trialed the hip. The standard neck was just seemed too tight particular in extension. Therefore used the a short neck option. Leg lengths seemed appropriate and equal and the hip was fully stable in full extension and external rotation flexion to 90 degrees internal rotation over [address] I elect to place these implants. Nupathe all trial implants were removed. An apex hole customer success manager was placed. Highly cross-linked polyethylene liner was placed. A DePuy KLA short neck 125 degree angle size 11 KLA femoral stem was impacted in position. A +5/36 mm ceramic articular ball was placed. Hip was located once again found to be stable. Attention drawn toward closing. The wounds irrigated scope soft pulsatile lavage solution. I did inject locally with 60 cc of half percent Marcaine with epinephrine. The posterior capsule and external rotators were repaired through drill holes in the posterior trochanter with #2 Tycron suture. The IT band gluteal fascia then closed in 1 PDS suture running fashion for subcutaneous tissue then closed in 2 layers with the deep layer #2 Vicryl suture in the subcutaneous tissues with 2 Dexon suture in a buried interrupted fashion. Skin was then closed with skin monique. A Seda tract dressing was applied due to her a fairly thick soft tissue envelope. The patient was then transferred to the recovery room in stable condition. The patient tolerated procedure well no complications. Jayesh Wayne, my physician optometric assistant, was present for the entire procedure. His assistance was essential and required for appropriate patient positioning, prepping and draping, surgical exposure, performing the technical details of the operation, placement the implants, closure of the wound, and placement of the sterile bandage. I attest to the content of the Intraoperative Record and any orders documented therein. Any exceptions are noted below.
--- NOTE | 2021-12-30 09:11 | XRay Report ---
XR hip 1V LT w pelvis CLINICAL HISTORY: IN PACU - A/P PELVIS and LATERAL HIP TECHNIQUE: 2 views of the left hip and single frontal view of the pelvis were obtained. Comparison: None available at the time of this dictation. FINDINGS: Patient is status post total hip arthroplasty with expected postsurgical changes including soft tissu e swelling, subcutaneous emphysema, and surgical staple placement. No periarticular lucency or hardwa re fracture is seen. Degenerative changes are seen in the right hip joint. IMPRESSION: Expected postoperative appearance status post placement of total hip arthroplasty. ACT 112: Negative or not required by law. Electronically signed by: Brandon Perez M.D. 12/30/2021 9:09 AM
--- NOTE | 2021-12-30 09:34 | Anesthesiology Progress Note ---
Date of Service December 30, 2021 Anesthesia Post Procedure Vital Signs Vital Signs: Temp Pulse Resp BP Pulse Ox 12/30/21 09:20 36.8 C 82 14 101/59 L 96 12/30/21 09:10 79 19 96/63 L 100 12/30/21 09:00 76 19 96/63 L 100 12/30/21 08:50 76 16 103/68 100 12/30/21 08:43 36.1 C L 75 14 125/88 100 12/30/21 05:58 36.8 C 79 20 181/77 H 98 Transfer of Care Handoff Completed per policy Notes Mental Status: alert / awake / arousable and participated in evaluation Patient Amnestic to Procedure: Yes Nausea / Vomiting: adequately controlled Pain: adequately controlled Airway Patency, RR, SpO2: stable & adequate BP & HR: stable & adequate Hydration State: stable & adequate Anesthetic Complications: no major complications apparent and Pt Satisfied with anesthetic care
[2021-12-30] MEDS ORDERED: NON-FORMULARY MEDICATION (Amino Acids [Amino Acid] Capsule) PO SCH (10:23)
[2021-12-30] MEDS ORDERED: TRIAMCINOLONE ACET 0.5% CR 15 GM TUBE TOP PRN (10:23)
[2021-12-30] MEDS ORDERED: POLYETHYLENE (MIRALAX) 17 GM PACK PO PRN (10:23)
[2021-12-30] MEDS ORDERED: MAGNESIUM HYDROXIDE SUSP 30 ML UDC PO PRN (10:23)
[2021-12-30] MEDS ORDERED: NON-FORMULARY MEDICATION (Coenzyme Q10 100 mg capsule) PO SCH (10:23)
[2021-12-30] MEDS ORDERED: ALUMINUM/MAGNESIUM SUSP 30 ML UDC PO PRN (10:23)
[2021-12-30] MEDS ORDERED: bisacodyL 10 MG SUPP PR PRN (10:23)
[2021-12-30] MEDS ORDERED: METOCLOPRAMIDE HCL INJ 5 MG/ML 2 ML VIAL IV PRN (10:23)
[2021-12-30] MEDS ORDERED: DOCUSATE SODIUM/SENNA 50/8.6MG TAB PO SCH (10:23)
[2021-12-30] MEDS ORDERED: VANCOMYCIN CONSULT ACTIVE PRN (10:23)
[2021-12-30] MEDS: SODIUM CHLORIDE 0.9% 1000ML 1,000 ML IV SCH ×2 (10:35→20:35)
[2021-12-30] MEDS: carvediloL 3.125 MG TAB PO SCH ×2 (11:31→20:36)
[2021-12-30] MEDS: EZETIMIBE 10 MG TABLET PO SCH (11:33)
[2021-12-30] MEDS: MULTIVITAMIN TAB PO SCH (11:33)
[2021-12-30] MEDS: DOCUSATE SODIUM 100 MG CAP PO SCH ×2 (11:33→20:36)
[2021-12-30] MEDS: ASPIRIN 81 MG ECTAB PO SCH ×2 (11:34→20:37)
[2021-12-30] MEDS: ACETAMINOPHEN 500 MG TAB PO SCH ×2 (14:04→21:50)
[2021-12-30] MEDS ORDERED: HYDROmorphone INJ 0.5 MG/0.5 ML SYR IV PRN (14:25)
--- NOTE | 2021-12-30 14:25 | Communication Note ---
Date of Service: December 30, 2021 pt c/o dry throat and expiratory wheeze. i evaluated pt. pt is cta b/l. Pt airway was not manipulated.
[2021-12-30] MEDS ORDERED: TRANEXAMIC ACID / 0.7% NACL 1,000 MG/100 ML BAG IV SCH (14:45)
[2021-12-30] MEDS: ASCORBIC ACID 500 MG TAB PO SCH (16:52)
[2021-12-30] MEDS ORDERED: VANCOMYCIN HCL 1,250 MG in SODIUM CHLORIDE 0.9% 250 ML IV SCH (18:00)
[2021-12-30] MEDS: CALCIUM 600MG + VIT D 400 IU TAB PO SCH (20:36)
[2021-12-30] MEDS: SENNA 8.6 MG TAB PO SCH (20:36)
[2021-12-31] MEDS ORDERED: HYDROmorphone HCL 2 MG TAB PO PRN (01:44)
[2021-12-31] MEDS ORDERED: HYDROmorphone INJ 0.5 MG/0.5 ML SYR IV PRN (01:44)
[2021-12-31] MEDS: PANTOprazole 40 MG TAB PO SCH (05:37)
[2021-12-31] MEDS: ACETAMINOPHEN 500 MG TAB PO SCH ×3 (05:38→21:37)
[2021-12-31 06:40] LABS: Basophils # (auto) 0.01 K/uL (0-0.2); Basophils % (auto) 0.1 %; Eosinophils # (auto) 0.13 K/uL (0-0.5); Eosinophils % (auto) 1.5 %; Hematocrit (blood only) 31.1 % (37-47); Hemoglobin 10.2 g/dL (12.0-16.0); Immature Granulocytes # (auto) 0.02 K/uL (0.00-0.02); Immature Granulocytes % (auto) 0.2 %; Lymphocytes # (auto) 1.29 K/uL (1.2-3.4); Mean Corpuscular Hemoglobin 28.7 pg (25-34); Mean Corpuscular Hgb Conc 32.8 g/dL (32-36); Mean Corpuscular Volume 87.4 fL (80-100); Mean Platelet Volume 9.5 fL (7.4-10.4); Monocytes # (auto) 0.84 K/uL (0.11-0.59); Monocytes % (auto) 9.8 %; Neutrophils # (auto) 6.31 K/uL (1.4-6.5); Neutrophils % (auto) 73.4 %; Platelet Count 169 K/uL (130-400); RDW Coefficient of Variation 14.8 % (11.5-14.5); RDW Standard Deviation 47.3 fL (36.4-46.3); Red Blood Count 3.56 M/uL (4.2-5.4)
[2021-12-31 07:04] LABS: BUN Creatinine Ratio 22.5 (10-20); Calcium 7.9 mg/dl (8.5-10.1); Creatinine Clr Calc Pharmacy 72.1 ml/min; Est GFR (African American) 96.6 ml/min; Est GFR (Non-African American) 83.3 ml/min; Potassium 3.8 mmol/L (3.5-5.1)
[2021-12-31] MEDS: ASCORBIC ACID 500 MG TAB PO SCH ×2 (07:53→16:17)
[2021-12-31] MEDS: MULTIVITAMIN TAB PO SCH (07:53)
[2021-12-31] MEDS: CALCIUM 600MG + VIT D 400 IU TAB PO SCH ×2 (07:54→21:36)
[2021-12-31] MEDS: ASPIRIN 81 MG ECTAB PO SCH ×2 (07:54→21:37)
[2021-12-31] MEDS: carvediloL 3.125 MG TAB PO SCH ×2 (07:54→21:38)
[2021-12-31] MEDS: DOCUSATE SODIUM 100 MG CAP PO SCH ×2 (07:54→21:37)
[2021-12-31] MEDS: EZETIMIBE 10 MG TABLET PO SCH (07:54)
[2021-12-31] MEDS ORDERED: dexAMETHasone 10 MG in SYRINGE 0 ML IV SCH (08:00)
--- NOTE | 2021-12-31 08:31 | Progress Notes ---
DATE OF SERVICE: 12/31/2021. SUBJECTIVE: A 76-year-old white female postoperative day 1 from a left hip replacement. She is doin g pretty well. A little bit nauseated this morning. No chest pain or shortness of breath. Not feel ing dizzy or lightheaded. OBJECTIVE: VITAL SIGNS: Temperature 36.7. Vital signs are stable. PHYSICAL EXAMINATION: GENERAL: Shows a pleasant middle-aged female. Lying in bed, looks reasonably comfortable, but still looks a little bit groggy from the anesthesia. LUNGS: Clear to auscultation. HEART: Regular rate and rhythm. ABDOMEN: Soft, nontender, nondistended. EXTREMITIES: Grossly neurovascularly intact except as follows: Examination of the left hip reveals the Prevena VAC dressing to be in place. Leg lengths were equal. Thigh is soft and supple. She is neurologically intact. LABORATORY DATA: Hemoglobin 10.2. Hematocrit 31.1. Electrolytes are stable. ASSESSMENT: A 76-year-old white female postoperative day 1 from a left hip replacement, doing pretty well. Still a bit groggy from the anesthesia. Her pain is controlled. Hip is located. She is sebastian rologically intact. PLAN: 1. DVT prophylaxis includes thigh-high TEDs, SCDs, and aspirin twice a day. 2. PT, OT, weightbear as tolerated. Left total knee protocol. 3. Pain control, doing okay with current pain regimen. 4. Disposition: Plan to discharge to home with some home health. We will see how she does in [facility] today. Job ID: [id number]
[2021-12-31] MEDS: SENNA 8.6 MG TAB PO SCH (21:36)
[2022-01-01] MEDS: PANTOprazole 40 MG TAB PO SCH (06:08)
[2022-01-01] MEDS: ACETAMINOPHEN 500 MG TAB PO SCH (06:08)
--- NOTE | 2022-01-01 07:17 | Orthopedic Progress Note ---
Date of Service January 01, 2022 Assessment & Plan (1) Status post left hip replacement: Overall she is doing fairly well. She feels much better than she did yesterday. She will be seen by physical therapy today for ambulation and range of motion exercises. She can be discharged home later today. She will follow- up with orthopedics in 2 weeks. Yanick Latham was seen and examined at bedside this morning. Overall she is doing very well. She is having too much pain in the hip. She feels much better than she did yesterday. She has no complaints.. Review of Systems All systems reviewed & are unremarkable except as noted in HPI & below. Physical Exam On physical examination of the hip, her leg lengths are equal. The dressing is clean and dry. She has active motion of her ankle. Results & Data Results & Data Laboratory Results . Diagnostic Findings . PG Care Time/CCT Total # of Minutes Spent Total Time Spent with Patient: Total time spent is greater than 50% in coordination of care (as documented) at patient's floor/unit and/or counseling patient: Coding Level of Care Code 04368 Post Operative Follow-Up Diagnoses Status post left hip replacement Z96.642
[2022-01-01] MEDS: ASPIRIN 81 MG ECTAB PO SCH (08:34)
[2022-01-01] MEDS: MULTIVITAMIN TAB PO SCH (08:34)
[2022-01-01] MEDS: ASCORBIC ACID 500 MG TAB PO SCH (08:34)
[2022-01-01] MEDS: EZETIMIBE 10 MG TABLET PO SCH (08:34)
[2022-01-01] MEDS: CALCIUM 600MG + VIT D 400 IU TAB PO SCH (08:35)
[2022-01-01] MEDS: carvediloL 3.125 MG TAB PO SCH (08:35)
[2022-01-01] MEDS: DOCUSATE SODIUM 100 MG CAP PO SCH (08:35)
== END 2022-01-01 10:36 | disposition home health service (06) ==
LOC: 3E 05:19 → ASU 05:19